=== PATIENT | female | born 1965 | race Two or more races ===

== ENCOUNTER 2022-07-18 03:40 | Emergency (ER) | payer MEDICAID, SELFPAY ==
--- NOTE | ~2022-07-18 | XR_ITS ---
EXAMINATION: ER CHEST CLINICAL INFORMATION: Right rib pain. COMPARISON: None TECHNIQUE: AP upright portable view of the chest was obtained. FINDINGS: The cardiomediastinal silhouette is within normal limits in size. Lungs bilaterally are symmetrically expanded. There is central vascular congestion with diffuse reticular prominence in the lungs, suggesting pulmonary edema. No focal consolidation, effusion or pneumothorax is seen. Bony structures are unremarkable. XR/XR chest 1V IMPRESSION: Findings are suggestive of mild pulmonary edema. Close clinical correlation and follow-up is recommended.
[2022-07-18 03:48] VITALS: BP 106/56; BP 107/48; PULSE 76; PULSE 84; RESP 17; TEMP 37.7; O2SAT 92; O2SAT 98; BMI 40.2
[2022-07-18 04:10] LABS: Mean Corpuscular Volume 98.5 fL (80.0-98.0); PLT CLUMP 1
[2022-07-18 04:12] LABS: Hematocrit 33.8 % (37.0-47.0); Hemoglobin 11.2 g/dl (12.0-16.0); Mean Corpuscular HGB Conc 33.1 g/dl (31.0-35.0); Mean Corpuscular Hemoglobin 32.7 pg (27.0-33.0); Mean Platelet Volume 11.5 fL (9.4-12.3); Red Blood Count 3.43 X10*6/uL (4.20-5.50)
[2022-07-18 04:13] LABS: White Blood Count 4.4 X10*3/uL (4.8-10.8)
[2022-07-18 04:29] LABS: Alanine Aminotransferase 101 U/L (0-31); Albumin Level 3.7 g/dL (3.5-5.0); Alkaline Phosphatase 87 U/L (39-117); Anion Gap 14 (12-20); Aspartate Amino Transferase 87 U/L (5-31); Bilirubin Total 0.4 mg/dL (0.0-1.0); Blood Urea Nitrogen 11 mg/dL (9-16); Calcium 7.9 mg/dL (8.4-10.2); Carbon Dioxide 24 mmol/L (22-29); Chloride 102 mmol/L (96-108); Creatinine Clr Calc Pharmacy 85.7; Estimated Glomerular Filt Rate > 60; Glucose Random 183 mg/dL (60-115); Sodium 137 mmol/L (135-145); Total Protein 6.5 g/dL (6.5-8.0)
[2022-07-18 04:35] LABS: Platelet Count 59 X10*3/uL (160-400)
[2022-07-18 04:47] LABS: Influenza A PCR POSITIVE (Negative); Influenza B PCR NEGATIVE (Negative); Resp Syncy Virus RNA Qual PCR NEGATIVE (Negative); SARS COV2 PCR INHOUSE NEGATIVE (Negative)
[2022-07-18 04:56] VITALS: BP 109/56; PULSE 82; RESP 19; TEMP 38.1; O2SAT 97
--- NOTE | 2022-07-18 06:27 | PC.NURSE ---
pt a&o, complaining of right rib pain while coughing, no n/v currently. pt is positive for FLU A. Will continue to monitor.
[2022-07-18 06:34] VITALS: BP 131/69; PULSE 81; RESP 19; TEMP 38.3; O2SAT 96
--- NOTE | 2022-07-18 06:41 | PC.NURSE ---
Notified provider Dr. Bal regarding pt temp. Will continue to monitor.
[2022-07-18] MEDS: Ibuprofen 400 MG TABLET PO (07:02)
[2022-07-18] MEDS: Acetaminophen 325 MG TABLET 975 MG PO (07:03)
--- NOTE | 2022-07-18 07:09 | ED.GENADULT ---
HPI - General Adult General Chief complaint: General Medical Stated complaint: Rt Flank Pain Time Seen by Provider: 07/18/22 06:40 Source: patient and family Mode of arrival: EMS History of Present Illness HPI narrative: 57-year-old female with history of COPD, diabetes, hypertension who presents via EMS for 3 days of worsening shortness of breath, cough, sore throat with body aches and subjective fevers with chills. She otherwise denies GI or symptoms. Related Data Previous Rx's Medication Instructions Recorded benzonatate 200 mg capsule 200 mg PO TID PRN cough #14 caps 07/18/22 Allergies Allergy/AdvReac Type Severity Reaction Status Date / Time No Known Allergies Allergy Verified 07/18/22 03:54 Review of Systems Review of Systems: Pertinent positives and negatives as stated in HPI [facility] Past Medical History Source: nursing notes reviewed Social History Social History Advance Directives: No Advance Directives Information Provided: No Physical Exam ED Vital Signs: Vital Signs - 24 hr 07/18/22 03:48 07/18/22 04:56 07/18/22 06:34 Temperature 100 F 100.6 F H 101 F H Pulse Rate 84 82 81 Respiratory Rate 17 19 19 Blood Pressure 107/48 L 109/56 L 131/69 Pulse Oximetry 92 97 96 Oxygen Delivery Method Nasal Cannula Nasal Cannula Nasal Cannula Oxygen Flow Rate 2 2 07/18/22 07:35 07/18/22 08:08 Temperature 99.3 F Pulse Rate 77 87 Respiratory Rate 16 17 Blood Pressure 110/44 L Pulse Oximetry 96 Oxygen Delivery Method Nasal Cannula Oxygen Flow Rate 2 BMI result Body Mass Index 40.2 VITAL SIGNS: Reviewed. GENERAL: Chronically ill, well nourished, in mild distress. HEAD: Normocephalic/atraumatic EYES: PERRLA, EOMI EARS: Ext canals without abnormality NOSE: Nares patent bilateral OROPHARYNX: no oral lesions noted, posterior pharynx clear NECK: Supple, no adenopathy LUNGS: Good inspiratory effort with coarse rhonchi, increased work of breathing with tachypnea, no expiratory wheeze noted, dry cough noted. SpO2<97> on baseline nasal cannula oxygen CARDIOVASCULAR: Regular rate and rhythm without noted murmurs ABDOMEN: Soft, non-tender, non-distended with bowel sounds. MUSCULOSKELETAL: No tenderness, deformities, or effusions noted on gross inspection. EXTREMITIES: No cyanosis, clubbing or edema. SKIN: Inspection of the skin reveals no rashes NEUROLOGIC: Alert and oriented x 4. Strength and sensation to light touch were grossly intact x 4. Medications Administered Discontinued Medications Generic Name Dose Route Start Last Admin Trade Name Freq PRN Reason Stop Dose Admin Acetaminophen 975 mg 07/18/22 06:40 07/18/22 07:03 Acetaminophen 325 Mg Tablet PO 07/18/22 06:41 975 mg ONCE ONE Administration Benzonatate 200 mg 07/18/22 07:08 07/18/22 08:05 Benzonatate 100 Mg Capsule PO 07/18/22 07:09 200 mg ONCE ONE Administration Albuterol Sulfate 5 mg/ 0 mg 07/18/22 07:05 07/18/22 07:34 Albuterol/Ipratropium 3 ml INHALE 07/18/22 07:06 0.5 each ONCE ONE Administration Ibuprofen 400 mg 07/18/22 06:40 07/18/22 07:02 Ibuprofen 400 Mg Tablet PO 07/18/22 06:41 400 mg ONCE ONE Administration Potassium Chloride 60 meq 07/18/22 07:25 07/18/22 08:06 Potassium Chloride Er 20 Meq Tab.Er.Prt PO 07/18/22 07:26 60 meq ONCE ONE Administration Medical Decision Making Medical Decision Making MDM Narrative: 57-year-old female who does not appear well but in no extremis. 0713: Of on review with hematology results patient is noted to have a macrocytic anemia and no history of acute bleeding so I feel that this is likely chronic in nature, however there is a noted low platelet count again no comparison available and no current history of petechial rash or bleeding and patient does have underlying viral illness as she is noted to be flu A positive which may be a contributing factor to the hematologic results on review which include a WBC-4.4. Patient is also febrile currently and has a low potassium level and will receive oral repletion for this. Patient is also going to get a 5 mg DuoNeb treatment and I have low clinical suspicion for acute COPD exacerbation as a feel that this is primarily attributable to influenza a. Patient continues to oxygenate well on her baseline nasal cannula. 0930: On re-evaluation patient reports that she is feeling improved, on review of her lab work I do not find any clinical evidence of fluid overload which was further corroborated by BNP-20, and patient continues to oxygenating well on baseline supplemental oxygen from home. She is not experience any increase in phlegm production and do not feel that she is currently experiencing a COPD exacerbation. The chest x-ray although mildly suggestive of congestion really feel that this is more consistent with underlying viral infection. Patient was strongly encouraged to follow-up with her primary care provider by calling the office today and she is currently outside the window for Tamiflu. She is otherwise stable for discharge to home. Differential Diagnosis Differential Diagnoses: The differential diagnosis associated with the presentation includes I will rule out Viral illness,COPD, pneumonia Lab Data MDM Lab Attestation statement: I reviewed the patient's lab results. Please see the discussion above Result Diagrams: 07/18/22 04:06 07/18/22 04:06 Labs: Lab Results 07/18/22 07/18/22 07/18/22 Range/Units 04:06 04:06 04:06 WBC 4.4 L (4.8-10.8) X10*3/uL RBC 3.43 L (4.20-5.50) X10*6/uL Hgb 11.2 L (12.0-16.0) g/dl Hct 33.8 L (37.0-47.0) % MCV 98.5 H (80.0-98.0) fL MCH 32.7 (27.0-33.0) pg MCHC 33.1 (31.0-35.0) g/dl RDW 16.0 (11.0-16.0) % Plt Count 59 L (160-400) X10*3/uL MPV 11.5 (9.4-12.3) fL Absolute Nucleated RBC 0.000 (0.0-0.012) X10*3/uL Nucleated RBC % (auto) 0.0 (0.0-0.2) /100WBC Sodium 137 (135-145) mmol/L Potassium 3.0 L (3.3-5.1) mmol/L Chloride 102 (96-108) mmol/L Carbon Dioxide 24 (22-29) mmol/L Anion Gap 14 (12-20) BUN 11 (9-16) mg/dL Creatinine 0.80 (0.5-1.4) mg/dL Estim Creat Clear Calc 85.7 Estimated GFR > 60 Random Glucose 183 H (60-115) mg/dL Lactic Acid (0.5-2.0) mmol/L Calcium 7.9 L (8.4-10.2) mg/dL Total Bilirubin 0.4 (0.0-1.0) mg/dL AST 87 H (5-31) U/L ALT 101 H (0-31) U/L Alkaline Phosphatase 87 (39-117) U/L B-Natriuretic Peptide (<100) pg/mL Total Protein 6.5 (6.5-8.0) g/dL Albumin 3.7 (3.5-5.0) g/dL Influenza Type A (PCR) POSITIVE A (Negative) Influenza Type B (PCR) NEGATIVE (Negative) RSV RNA Qual (PCR) NEGATIVE (Negative) SARS-CoV-2 RNA (RT-PCR) NEGATIVE (Negative) 07/18/22 07/18/22 Range/Units 04:06 07:53 WBC (4.8-10.8) X10*3/uL RBC (4.20-5.50) X10*6/uL Hgb (12.0-16.0) g/dl Hct (37.0-47.0) % MCV (80.0-98.0) fL MCH (27.0-33.0) pg MCHC (31.0-35.0) g/dl RDW (11.0-16.0) % Plt Count (160-400) X10*3/uL MPV (9.4-12.3) fL Absolute Nucleated RBC (0.0-0.012) X10*3/uL Nucleated RBC % (auto) (0.0-0.2) /100WBC Sodium (135-145) mmol/L Potassium (3.3-5.1) mmol/L Chloride (96-108) mmol/L Carbon Dioxide (22-29) mmol/L Anion Gap (12-20) BUN (9-16) mg/dL Creatinine (0.5-1.4) mg/dL Estim Creat Clear Calc Estimated GFR Random Glucose (60-115) mg/dL Lactic Acid 1.0 (0.5-2.0) mmol/L Calcium (8.4-10.2) mg/dL Total Bilirubin (0.0-1.0) mg/dL AST (5-31) U/L ALT (0-31) U/L Alkaline Phosphatase (39-117) U/L B-Natriuretic Peptide 20 (<100) pg/mL Total Protein (6.5-8.0) g/dL Albumin (3.5-5.0) g/dL Influenza Type A (PCR) (Negative) Influenza Type B (PCR) (Negative) RSV RNA Qual (PCR) (Negative) SARS-CoV-2 RNA (RT-PCR) (Negative) Independent Interpretation I performed an independent interpretation of an: EKG Interpretation: Normal sinus rhythm, HR-86, no STEMI, NV/QRS/QTC are within normal limits. Radiology Impression Radiologist Impression: My interpretation is not in agreement with radiology's impression chest x-ray. Discharge Plan Discharge Clinical Impression: Acute viral syndrome, Influenza A Patient Disposition: Home, Self-Care Instructions: Influenza (ED), Viral Syndrome (ED) Additional Instructions: 1. Reanudar todos los medicamentos caseros seg?n lo prescrito. 2. Le he dado jade receta para un medicamento para la tos. 3. Tylenol 1000 mg, por v?a oral, cada 6 horas seg?n sea necesario para controlar el dolor. No exceda los 4000 mg dentro de las 24 horas. Tenga cuidado ya que NyQuil/DayQuil contiene acetaminof?n/Tylenol y debe tener esto en cuenta para la dosis diaria m?xima. 4. Contin?e bebiendo paradise agua 5. Comun?quese con el consultorio de holman proveedor de atenci?n primaria hoy mismo para programar jade nora para jade reevaluaci?n y un manejo ambulatorio adicional. Regrese a la cortney de emergencias por cualquier empeoramiento de los s?ntomas. 1. Resume all home medications as prescribed. 2. I have provided you with a prescription for a cough medication. 3. Tylenol 1000 mg, orally, every 6 hours as needed for pain control. Do not exceed 4000 mg within 24 hours. Please use caution as NyQuil/DayQuil does have acetaminophen/Tylenol in it and you need to take this into account for the maximum daily dose. 4. Continue to drink plenty of water 5. Please contact your primary care provider office today to set up an appointment for re-evaluation and further outpatient management. Return to the ER for any worsening of symptoms. Prescriptions: New benzonatate 200 mg capsule 200 mg PO TID PRN (Reason: cough) Qty: 14 0RF Print Language: Malay
[2022-07-18] MEDS: Albuterol Sulfate 5 MG, Albuterol/Iprat 2.5/0.5MG 3 ML 3 ML INHALE (07:34)
[2022-07-18 07:35] VITALS: PULSE 77; RESP 16; O2SAT 94
--- NOTE | 2022-07-18 08:02 | ECG_ITS ---
Test Reason : SOB Blood Pressure : / mmHG Vent. Rate : 086 BPM Atrial Rate : 086 BPM P-R Int : 164 ms QRS Dur : 094 ms QT Int : 384 ms P-R-T Axes : 074 -04 033 degrees QTc Int : 459 ms Normal sinus rhythm Inferior infarct , age undetermined Abnormal ECG No previous ECGs available Referred By: Fidelia Trinh Electronically Signed By:ISADORA BLACKWOOD MD
[2022-07-18] MEDS: Benzonatate 100 MG CAPSULE 200 MG PO (08:05)
[2022-07-18] MEDS: Potassium Chloride ER 20 MEQ TAB.ER.PRT 60 MEQ PO (08:06)
[2022-07-18 08:08] VITALS: BP 110/44; PULSE 87; RESP 17; TEMP 37.4; O2SAT 96
[2022-07-18 09:16] LABS: B Type Natriuretic Peptide 20 pg/mL (<100)
== END 2022-07-18 10:03 | disposition home or self-care (01) ==
PROVIDERS: Emergency Provider Student in an Organized Health Care Education/Training Program
DX: B34.9 Viral infection, unspecified (principal); J11.1 Influenza due to unidentified influenza virus with other respiratory manifestations; Z20.822 Contact with and (suspected) exposure to COVID-19; R06.02 Shortness of breath; I10 Essential (primary) hypertension; E11.9 Type 2 diabetes mellitus without complications; J44.9 Chronic obstructive pulmonary disease, unspecified; Z87.891 Personal history of nicotine dependence
CPT/HCPCS: 0241U; 36415; 71045; 80053; 83605; 83880; 85027; 87040; 93005; 94640; 99284; 99285

== ENCOUNTER 2022-07-23 14:22 | Inpatient (IN) | payer MEDICAID, SELFPAY ==
[2022-07-23] VITALS (8 sets, daily range): BP systolic 98–124; BP diastolic 46–58; PULSE 67–94; RESP 15–20; TEMP 36.2–37.2; O2SAT 88–95; BMI 40.2
--- NOTE | ~2022-07-23 | XR_ITS ---
EXAMINATION: XR CHEST CLINICAL INFORMATION: SOB. COMPARISON: None TECHNIQUE: 2 views of the chest were obtained. FINDINGS: The lungs are well-expanded and clear of acute pneumonic process. The heart size and pulmonary vascularity is normal. No gross bony abnormality seen. XR/XR chest 2V IMPRESSION: Unremarkable chest exam.
--- NOTE | ~2022-07-23 | CT_ITS ---
EXAMINATION: CT CHEST WITHOUT CONTRAST CLINICAL INFORMATION: Hypoxemia COMPARISON: Chest radiograph earlier today TECHNIQUE: Multidetector volumetric CT imaging of the chest was done. Axial MIP volume rendering provided. Sagittal and coronal reformatted images were obtained. This CT examination was performed using dose optimization techniques as appropriate, variously including the following: *Automated exposure control *Adjustment of mA and/or kV according to patient size (this includes techniques or standardized protocols for targeted exams where dose is matched to indication/reason for exam; i.e. extremities or head) *Use of iterative reconstruction technique DLP: 426 mGy-cm FINDINGS: LUNGS: Multifocal groundglass prominently peripheral infiltrates are present predominantly in the upper lobes with some small areas in the right lower lobe and relative sparing of the left lower lobe. No solid lung masses are seen. MEDIASTINUM: Heart size normal. Some prominent lymph nodes are seen in the AP window and precarinal region measuring 1.0 and 1.2 cm. No gross mediastinal or hilar lymphadenopathy. CORONARY ARTERY CALCIFICATION: None visualized on this study. PLEURA: There is no pleural effusion. No pleural mass or thickening. AXILLA: No lymphadenopathy. UPPER ABDOMEN: Unremarkable. OSSEOUS STRUCTURES: Unremarkable. CT/CT chest wo IV con IMPRESSION: Multifocal groundglass infiltrates predominantly in the upper lobes with some small areas in the right lower lobe. Findings are consistent with Covid 19. Other processes such as influenza pneumonia or organizing pneumonia, as can be seen with drug toxicity and connective tissue disease, can cause a similar imaging pattern. Fleischner guidelines were followed.
--- NOTE | ~2022-07-23 | US_ITS ---
EXAMINATION: US ABDOMEN COMPLETE CLINICAL INFORMATION: Cirrhosis. COMPARISON: None TECHNIQUE: Real-time imaging of the abdominal viscera. FINDINGS: PANCREAS: The pancreas appears unremarkable, without masses or ductal dilatation, with the exception of the tail which is obscured by bowel gas. ABDOMINAL AORTA: The proximal, mid, and distal segments are normal in caliber. INFERIOR VENA CAVA: Visualized portions are normal. LIVER: The liver appears enlarged and demonstrates increased echogenicity consistent with hepatic steatosis. In retrospect, on the recent CT scan, the liver measures a few Hounsfield units less than the spleen also consistent with hepatic steatosis. The liver is normal in size. The liver contour is normal. Parenchymal echogenicity is normal. No focal hepatic lesion. There is no intrahepatic biliary duct dilatation seen. GALLBLADDER: The gallbladder is physiologically distended without evidence of stones, sludge or pericholecystic fluid. Common tail artifact are present near the fundus suggesting adenomyomatosis. COMMON BILE DUCT: Normal in caliber measuring 0.3 cm in diameter. RIGHT KIDNEY: Normal. No hydronephrosis. No renal calculi or focal parenchymal lesions. The kidney measures 10.7 cm in maximum dimension. LEFT KIDNEY: An upper pole benign simple Bosniak class I cyst present measuring 2.8 cm. No hydronephrosis. No renal calculi or focal parenchymal lesions. The kidney measures 11.4 cm in maximum dimension. SPLEEN: Normal. The spleen measures 8.8 cm in maximum dimension. FREE FLUID: None. US/US abdomen complete IMPRESSION: 1. Enlarged fatty liver. 2. Gallbladder adenomyomatosis. 3. Benign Bosniak class I left renal cyst needs no further follow-up.
--- NOTE | 2022-07-23 14:25 | ED_ITS ---
HPI - General Adult General Chief complaint: Dyspnea <JOSE Ahuja - Last Filed: 07/23/22 14:29> Stated complaint: diff breathing <JOSE Ahuja - Last Filed: 07/23/22 14:29> Time Seen by Provider: 07/23/22 14:48 <JOSE Ahuja - Last Filed: 07/23/22 14:29> Source: patient and family <Anna Danielson NP - Last Filed: 07/23/22 18:55> Mode of arrival: ambulatory <Anna Danielson NP - Last Filed: 07/23/22 18:55> Limitations: language barrier <Anna Danielson NP - Last Filed: 07/23/22 18:55> History of Present Illness HPI narrative: 57-year-old female with past medical history of COPD, diabetes, hypertension, and recently diagnosed with flu a on 07/18/2022 presents emergency department with complaints of shortness of breath and a hoarse voice x 2 days. She states she has been using her inhalers at home with moderate results in symptom reduction. She denies any chest pain, nausea, vomiting, diarrhea, constipation, headache, or vision changes at this time. <Anna Danielson NP - Last Filed: 07/23/22 18:55> Onset (ago): day(s) <Anna Danielson NP - Last Filed: 07/23/22 18:55> Related Data Home medications: Previous Rx's Medication Instructions Recorded benzonatate 200 mg capsule 200 mg PO TID PRN cough #14 caps 07/18/22 amoxicillin 875 mg-potassium 1 tab PO BID 5 days #10 tabs 07/23/22 clavulanate 125 mg tablet prednisone 20 mg tablet 60 mg PO DAILY 5 days #15 tabs 07/23/22 <JOSE Ahuja - Last Filed: 07/23/22 14:29> Allergies/adverse reactions: Allergies Allergy/AdvReac Type Severity Reaction Status Date / Time No Known Allergies Allergy Verified 07/18/22 03:54 <JOSE Ahuja - Last Filed: 07/23/22 14:29> Review of Systems Review of Systems: Yes all other systems are reviewed and are negative <Anna Danielson NP - Last Filed: 07/23/22 18:55> [facility] Past Medical History Attestation statement: The following information was validated with the patient. <Anna Danielson NP - Last Filed: 07/23/22 18:55> Source: old records reviewed and obtained from family <Anna Danielson NP - Last Filed: 07/23/22 18:55> Social History Social History: Social History Advance Directives: No Advance Directives Information Provided: Yes <JOSE Ahuja - Last Filed: 07/23/22 14:29> Physical Exam ED Vital Signs: Vital Signs - 24 hr 07/23/22 14:27 07/23/22 14:59 07/23/22 16:29 Temperature 97.1 F 98.9 F Pulse Rate 79 67 73 Respiratory Rate 18 18 19 Blood Pressure 103/51 L 98/58 L Pulse Oximetry 88 L 90 L Oxygen Delivery Method Room Air Room Air 07/23/22 16:56 07/23/22 18:42 Temperature Pulse Rate 77 Respiratory Rate 15 Blood Pressure Pulse Oximetry 88 L 93 Oxygen Delivery Method Room Air Room Air BMI result Body Mass Index 40.2 <JOSE Ahuja - Last Filed: 07/23/22 14:29> Vital Signs - 24 hr 07/23/22 14:27 07/23/22 14:59 07/23/22 16:29 Temperature 97.1 F 98.9 F Pulse Rate 79 67 73 Respiratory Rate 18 18 19 Blood Pressure 103/51 L 98/58 L Pulse Oximetry 88 L 90 L Oxygen Delivery Method Room Air Room Air 07/23/22 16:56 07/23/22 18:42 Temperature Pulse Rate 77 Respiratory Rate 15 Blood Pressure Pulse Oximetry 88 L 93 Oxygen Delivery Method Room Air Room Air BMI result Body Mass Index 40.2 <Anna Danielson NP - Last Filed: 07/23/22 18:55> Nursing notes and vital signs reviewed. GENERAL APPEARANCE: A&0 x 4, generally well appearing, no acute distress HENMT: Normal to inspection, atraumatic, face symmetrical. Normal external ears, nose, and oropharynx clear. EYE: PERRLA, EOM intact, structures appear normal NECK: Supple without lymphadenopathy. No stiffness or restricted ROM. CHEST: Normal to inspection HEART: Normal rate and regular rhythm, normal S1/S2 LUNGS: LS diminished. Able to speak in complete sentences. No crackles, wheezes, or rhonchi auscultated ABDOMEN: Soft, nontender, nondistended. Normal bowel sounds noted BACK: No CVAT, no obvious deformity. Normal cervical and thoracolumbar ROM EXTREMITIES: Moving all extremities without difficulty. No cyanosis, clubbing, or edema. Normal capillary refill. NEUROLOGICAL: Alert and oriented, moving all 4 extremities with equal strength. CN not formally tested but appearing grossly intact. Observed to ambulate with normal gait. Cognition normal SKIN: Warm and dry without any lesions, rash, or visible sores PSYCH: Cooperative, normal affect, normal thought process <Anna Danielson NP - Last Filed: 07/23/22 18:55> Course Course Course Narrative: RME performed by Glenna Johnson PA-C. Patient is a 57 year old female presenting to the emergency department with increased shortness of breath. Patient has been having difficulty breathing for 5 days and it seems to be getting worse. Labs + imaging ordered. Patient 88% room air - charge nurse rubi fuentes. <JOSE Ahuja Last Filed: 07/23/22 14:29> RME performed by Glenna Johnson PA-C. Patient is a 57 year old female presenting to the emergency department with increased shortness of breath. Patient has been having difficulty breathing for 5 days and it seems to be getting worse. Labs + imaging ordered. Patient 88% room air - charge nurse alerted. 1500: Patient x-ray. 1540: Methylprednisone, IV Mag, and albuterol given 1630: Patient ambulating in the hallway without issue. 1700: K 2.7, 40 mEq PO and 10 mEq KCL IV x 2 ordered for K replacement. SpO2 ranging from 88-90% on room air. Urinalysis positive for infection. 1850: Sign out given to MAURI Jeronimo <Anna Danielson NP - Last Filed: 07/23/22 18:55> Medications Administered Discontinued Medications Generic Name Dose Route Start Last Admin Trade Name Freq PRN Reason Stop Dose Admin Albuterol Sulfate 5 mg/ 7.5 mg 07/23/22 14:27 07/23/22 14:57 Albuterol Sulfate 2.5 mg INHALE 07/23/22 14:28 7.5 mg ONCE ONE Administration Magnesium Sulfate 2 gm in 50 mls @ 25 mls/hr 07/23/22 14:27 07/23/22 18:26 Magnesium Sulfate/H2o IV 07/23/22 16:26 Infused ONCE ONE Infusion Potassium Chloride 10 meq in 100 mls @ 100 mls/hr 07/23/22 17:00 07/23/22 17:40 Potassium Chloride/H20 IV 07/23/22 17:59 100 mls/hr ONCE ONE Administration Potassium Chloride 10 meq in 100 mls @ 100 mls/hr 07/23/22 17:02 07/23/22 18:44 Potassium Chloride/H20 IV 07/23/22 18:01 100 mls/hr ONCE ONE Administration Methylprednisolone Sodium Succinate 60 mg 07/23/22 14:27 07/23/22 15:40 Methylprednisolone Sod Succ 125 Mg/2 Ml Vial IVPUSH 07/23/22 14:28 60 mg ONCE ONE Administration Potassium Chloride 40 meq 07/23/22 17:00 07/23/22 17:38 Potassium Chloride Er 20 Meq Tab.Er.Prt PO 07/23/22 17:01 40 meq ONCE ONE Administration <JOSE Ahuja - Last Filed: 07/23/22 14:29> Medications Administered Discontinued Medications Generic Name Dose Route Start Last Admin Trade Name Freq PRN Reason Stop Dose Admin Albuterol Sulfate 5 mg/ 7.5 mg 07/23/22 14:27 07/23/22 14:57 Albuterol Sulfate 2.5 mg INHALE 07/23/22 14:28 7.5 mg ONCE ONE Administration Magnesium Sulfate 2 gm in 50 mls @ 25 mls/hr 07/23/22 14:27 07/23/22 18:26 Magnesium Sulfate/H2o IV 07/23/22 16:26 Infused ONCE ONE Infusion Potassium Chloride 10 meq in 100 mls @ 100 mls/hr 07/23/22 17:00 07/23/22 17:40 Potassium Chloride/H20 IV 07/23/22 17:59 100 mls/hr ONCE ONE Administration Potassium Chloride 10 meq in 100 mls @ 100 mls/hr 07/23/22 17:02 07/23/22 18:44 Potassium Chloride/H20 IV 07/23/22 18:01 100 mls/hr ONCE ONE Administration Methylprednisolone Sodium Succinate 60 mg 07/23/22 14:27 07/23/22 15:40 Methylprednisolone Sod Succ 125 Mg/2 Ml Vial IVPUSH 07/23/22 14:28 60 mg ONCE ONE Administration Potassium Chloride 40 meq 07/23/22 17:00 07/23/22 17:38 Potassium Chloride Er 20 Meq Tab.Er.Prt PO 07/23/22 17:01 40 meq ONCE ONE Administration <Anna Danielson NP - Last Filed: 07/23/22 18:55> Medical Decision Making Medical Decision Making [facility] Narrative: 57-year-old female with past medical history of COPD, diabetes, hypertension, and recently diagnosed with flu a on 07/18/2022 presents emergency department with complaints of shortness of breath and a hoarse voice x 2 days. Solu-Medrol, IV Mag, and albuterol nebulizer treatment given with reduction in symptoms. Chest x-ray unremarkable showing lungs well expanded and clear of acute pneumonic process. Hematology improved from last lab draw done 07/18/2022, however; H/H is still below normal limits. Chemistry significant for potassium level 2.7. 40 mEq given p.o. and total of 20 mEq given IV. Will redraw K after 2nd potassium infused. VBG unremarkable. Unremarkable chest x- ray. <Anna Danielson NP - Last Filed: 07/23/22 18:55> Lab Data [facility] Lab Attestation statement: I reviewed the patient's lab results. <Anna Danielson NP - Last Filed: 07/23/22 18:55> Result Diagrams: 07/23/22 15:19 07/23/22 15:19 <JOSE Ahuja - Last Filed: 07/23/22 14:29> Labs: Lab Results 07/23/22 07/23/22 07/23/22 Range/Units 15:19 15:19 15:19 WBC 6.0 (4.8-10.8) X10*3/uL RBC 3.50 L (4.20-5.50) X10*6/uL Hgb 11.6 L (12.0-16.0) g/dl Hct 34.0 L (37.0-47.0) % MCV 97.1 (80.0-98.0) fL MCH 33.1 H (27.0-33.0) pg MCHC 34.1 (31.0-35.0) g/dl RDW 15.4 (11.0-16.0) % Plt Count 76 L D (160-400) X10*3/uL MPV 11.5 (9.4-12.3) fL Immature Gran % (Auto) Cancelled Neut % (Auto) Cancelled Lymph % (Auto) Cancelled [place] % (Auto) Cancelled Eos % (Auto) Cancelled Baso % (Auto) Cancelled Lymph # (Auto) Cancelled [place] # (Auto) Cancelled Eos # (Auto) Cancelled Baso # (Auto) Cancelled Abs Immat Gran (auto) Cancelled Absolute Neuts (auto) Cancelled Absolute Nucleated RBC 0.000 (0.0-0.012) X10*3/uL Nucleated RBC % (auto) 0.0 (0.0-0.2) /100WBC Neutrophils % (Manual) 40 L (45-73) % Band Neutrophils % 0 L (3-5) % Lymphocytes % (Manual) 45 H (20-40) % Atypical Lymphs % (Man) 8 H (0-6) % Monocytes % (Manual) 2 (2-11) % Eosinophils % (Manual) 5 H (0-4) % Abs Neuts (Manual) 2.4 (2.0-8.3) X10*3/uL Lymphocytes # (Manual) 2.7 (1.2-4.9) X10*3/uL Atyp Lymphs # (Manual) 0.5 x10*3/uL Monocytes # (Manual) 0.1 (0.1-1.2) X10*3/uL Eosinophils # (Manual) 0.3 (0.0-0.4) X10*3/uL Platelet Estimate DECREASED (NORMAL) Large Platelets PRESENT Plt Morphology Comment NOTED RBC Morphology NORMAL VBG pH (7.32-7.43) VBG pCO2 mmHg VBG pO2 mmHg VBG HCO3 (22-26) mmol/L VBG O2 Saturation % VBG Base Excess mmol/L Sodium 138 (135-145) mmol/L Potassium 2.7 L (3.3-5.1) mmol/L Chloride 103 (96-108) mmol/L Carbon Dioxide 25 (22-29) mmol/L Anion Gap 13 (12-20) BUN 11 (9-16) mg/dL Creatinine 0.71 (0.5-1.4) mg/dL Estim Creat Clear Calc 96.6 Estimated GFR > 60 Random Glucose 140 H (60-115) mg/dL Calcium 8.3 L (8.4-10.2) mg/dL Magnesium 2.1 (1.6-2.6) mg/dL Total Bilirubin 0.6 (0.0-1.0) mg/dL AST 48 H (5-31) U/L ALT 63 H (0-31) U/L Alkaline Phosphatase 109 (39-117) U/L Troponin I High Sens < 3.5 (<3.5-17.0) ng/L Total Protein 6.8 (6.5-8.0) g/dL Albumin 3.8 (3.5-5.0) g/dL Urine Color Urine Appearance Urine pH (5.0-9.0) Ur Specific [place] (1.005-1.025) Urine Protein (Neg-Trace) mg/dL Urine Glucose (UA) (Negative) mg/dL Urine Ketones (Negative) mg/dL Urine Blood (Negative) Urine Nitrite (Negative) Ur Leukocyte Esterase (Negative) Urine RBC (0-2) /HPF Urine WBC (0-5) /HPF Ur Squamous Epith Cells (0-2) /HPF Urine Bacteria (None Seen) Hyaline Casts (0-2) /LPF Influenza Type A (PCR) (Negative) Influenza Type B (PCR) (Negative) RSV RNA Qual (PCR) (Negative) SARS-CoV-2 RNA (RT-PCR) (Negative) 07/23/22 07/23/22 07/23/22 Range/Units 15:19 15:24 16:43 WBC (4.8-10.8) X10*3/uL RBC (4.20-5.50) X10*6/uL Hgb (12.0-16.0) g/dl Hct (37.0-47.0) % MCV (80.0-98.0) fL MCH (27.0-33.0) pg MCHC (31.0-35.0) g/dl RDW (11.0-16.0) % Plt Count (160-400) X10*3/uL MPV (9.4-12.3) fL Immature Gran % (Auto) Neut % (Auto) Lymph % (Auto) [place] % (Auto) Eos % (Auto) Baso % (Auto) Lymph # (Auto) [place] # (Auto) Eos # (Auto) Baso # (Auto) Abs Immat Gran (auto) Absolute Neuts (auto) Absolute Nucleated RBC (0.0-0.012) X10*3/uL Nucleated RBC % (auto) (0.0-0.2) /100WBC Neutrophils % (Manual) (45-73) % Band Neutrophils % (3-5) % Lymphocytes % (Manual) (20-40) % Atypical Lymphs % (Man) (0-6) % Monocytes % (Manual) (2-11) % Eosinophils % (Manual) (0-4) % Abs Neuts (Manual) (2.0-8.3) X10*3/uL Lymphocytes # (Manual) (1.2-4.9) X10*3/uL Atyp Lymphs # (Manual) x10*3/uL Monocytes # (Manual) (0.1-1.2) X10*3/uL Eosinophils # (Manual) (0.0-0.4) X10*3/uL Platelet Estimate (NORMAL) Large Platelets Plt Morphology Comment RBC Morphology VBG pH 7.46 H (7.32-7.43) VBG pCO2 40 mmHg VBG pO2 111 mmHg VBG HCO3 28 H (22-26) mmol/L VBG O2 Saturation 98.0 % VBG Base Excess 4.8 mmol/L Sodium (135-145) mmol/L Potassium (3.3-5.1) mmol/L Chloride (96-108) mmol/L Carbon Dioxide (22-29) mmol/L Anion Gap (12-20) BUN (9-16) mg/dL Creatinine (0.5-1.4) mg/dL Estim Creat Clear Calc Estimated GFR Random Glucose (60-115) mg/dL Calcium (8.4-10.2) mg/dL Magnesium (1.6-2.6) mg/dL Total Bilirubin (0.0-1.0) mg/dL AST (5-31) U/L ALT (0-31) U/L Alkaline Phosphatase (39-117) U/L Troponin I High Sens (<3.5-17.0) ng/L Total Protein (6.5-8.0) g/dL Albumin (3.5-5.0) g/dL Urine Color Dark Yellow Urine Appearance Cloudy Urine pH 6.0 (5.0-9.0) Ur Specific [place] >= 1.030 H (1.005-1.025) Urine Protein 100 (2+) H (Neg-Trace) mg/dL Urine Glucose (UA) Negative (Negative) mg/dL Urine Ketones Trace (Negative) mg/dL Urine Blood Large (3+) H (Negative) Urine Nitrite Negative (Negative) Ur Leukocyte Esterase Moderate (2+) H (Negative) Urine RBC >20 H (0-2) /HPF Urine WBC >50 H (0-5) /HPF Ur Squamous Epith Cells 3-5 (0-2) /HPF Urine Bacteria None Seen (None Seen) Hyaline Casts 0-2 (0-2) /LPF Influenza Type A (PCR) NEGATIVE (Negative) Influenza Type B (PCR) NEGATIVE (Negative) RSV RNA Qual (PCR) NEGATIVE (Negative) SARS-CoV-2 RNA (RT-PCR) NEGATIVE (Negative) <JOSE Ahuja - Last Filed: 07/23/22 14:29> Lab Results 07/23/22 07/23/22 07/23/22 Range/Units 15:19 15:19 15:19 WBC 6.0 (4.8-10.8) X10*3/uL RBC 3.50 L (4.20-5.50) X10*6/uL Hgb 11.6 L (12.0-16.0) g/dl Hct 34.0 L (37.0-47.0) % MCV 97.1 (80.0-98.0) fL MCH 33.1 H (27.0-33.0) pg MCHC 34.1 (31.0-35.0) g/dl RDW 15.4 (11.0-16.0) % Plt Count 76 L D (160-400) X10*3/uL MPV 11.5 (9.4-12.3) fL Immature Gran % (Auto) Cancelled Neut % (Auto) Cancelled Lymph % (Auto) Cancelled [place] % (Auto) Cancelled Eos % (Auto) Cancelled Baso % (Auto) Cancelled Lymph # (Auto) Cancelled [place] # (Auto) Cancelled Eos # (Auto) Cancelled Baso # (Auto) Cancelled Abs Immat Gran (auto) Cancelled Absolute Neuts (auto) Cancelled Absolute Nucleated RBC 0.000 (0.0-0.012) X10*3/uL Nucleated RBC % (auto) 0.0 (0.0-0.2) /100WBC Neutrophils % (Manual) 40 L (45-73) % Band Neutrophils % 0 L (3-5) % Lymphocytes % (Manual) 45 H (20-40) % Atypical Lymphs % (Man) 8 H (0-6) % Monocytes % (Manual) 2 (2-11) % Eosinophils % (Manual) 5 H (0-4) % Abs Neuts (Manual) 2.4 (2.0-8.3) X10*3/uL Lymphocytes # (Manual) 2.7 (1.2-4.9) X10*3/uL Atyp Lymphs # (Manual) 0.5 x10*3/uL Monocytes # (Manual) 0.1 (0.1-1.2) X10*3/uL Eosinophils # (Manual) 0.3 (0.0-0.4) X10*3/uL Platelet Estimate DECREASED (NORMAL) Large Platelets PRESENT Plt Morphology Comment NOTED RBC Morphology NORMAL VBG pH (7.32-7.43) VBG pCO2 mmHg VBG pO2 mmHg VBG HCO3 (22-26) mmol/L VBG O2 Saturation % VBG Base Excess mmol/L Sodium 138 (135-145) mmol/L Potassium 2.7 L (3.3-5.1) mmol/L Chloride 103 (96-108) mmol/L Carbon Dioxide 25 (22-29) mmol/L Anion Gap 13 (12-20) BUN 11 (9-16) mg/dL Creatinine 0.71 (0.5-1.4) mg/dL Estim Creat Clear Calc 96.6 Estimated GFR > 60 Random Glucose 140 H (60-115) mg/dL Calcium 8.3 L (8.4-10.2) mg/dL Magnesium 2.1 (1.6-2.6) mg/dL Total Bilirubin 0.6 (0.0-1.0) mg/dL AST 48 H (5-31) U/L ALT 63 H (0-31) U/L Alkaline Phosphatase 109 (39-117) U/L Troponin I High Sens < 3.5 (<3.5-17.0) ng/L Total Protein 6.8 (6.5-8.0) g/dL Albumin 3.8 (3.5-5.0) g/dL Urine Color Urine Appearance Urine pH (5.0-9.0) Ur Specific [place] (1.005-1.025) Urine Protein (Neg-Trace) mg/dL Urine Glucose (UA) (Negative) mg/dL Urine Ketones (Negative) mg/dL Urine Blood (Negative) Urine Nitrite (Negative) Ur Leukocyte Esterase (Negative) Urine RBC (0-2) /HPF Urine WBC (0-5) /HPF Ur Squamous Epith Cells (0-2) /HPF Urine Bacteria (None Seen) Hyaline Casts (0-2) /LPF Influenza Type A (PCR) (Negative) Influenza Type B (PCR) (Negative) RSV RNA Qual (PCR) (Negative) SARS-CoV-2 RNA (RT-PCR) (Negative) 07/23/22 07/23/22 07/23/22 Range/Units 15:19 15:24 16:43 WBC (4.8-10.8) X10*3/uL RBC (4.20-5.50) X10*6/uL Hgb (12.0-16.0) g/dl Hct (37.0-47.0) % MCV (80.0-98.0) fL MCH (27.0-33.0) pg MCHC (31.0-35.0) g/dl RDW (11.0-16.0) % Plt Count (160-400) X10*3/uL MPV (9.4-12.3) fL Immature Gran % (Auto) Neut % (Auto) Lymph % (Auto) [place] % (Auto) Eos % (Auto) Baso % (Auto) Lymph # (Auto) [place] # (Auto) Eos # (Auto) Baso # (Auto) Abs Immat Gran (auto) Absolute Neuts (auto) Absolute Nucleated RBC (0.0-0.012) X10*3/uL Nucleated RBC % (auto) (0.0-0.2) /100WBC Neutrophils % (Manual) (45-73) % Band Neutrophils % (3-5) % Lymphocytes % (Manual) (20-40) % Atypical Lymphs % (Man) (0-6) % Monocytes % (Manual) (2-11) % Eosinophils % (Manual) (0-4) % Abs Neuts (Manual) (2.0-8.3) X10*3/uL Lymphocytes # (Manual) (1.2-4.9) X10*3/uL Atyp Lymphs # (Manual) x10*3/uL Monocytes # (Manual) (0.1-1.2) X10*3/uL Eosinophils # (Manual) (0.0-0.4) X10*3/uL Platelet Estimate (NORMAL) Large Platelets Plt Morphology Comment RBC Morphology VBG pH 7.46 H (7.32-7.43) VBG pCO2 40 mmHg VBG pO2 111 mmHg VBG HCO3 28 H (22-26) mmol/L VBG O2 Saturation 98.0 % VBG Base Excess 4.8 mmol/L Sodium (135-145) mmol/L Potassium (3.3-5.1) mmol/L Chloride (96-108) mmol/L Carbon Dioxide (22-29) mmol/L Anion Gap (12-20) BUN (9-16) mg/dL Creatinine (0.5-1.4) mg/dL Estim Creat Clear Calc Estimated GFR Random Glucose (60-115) mg/dL Calcium (8.4-10.2) mg/dL Magnesium (1.6-2.6) mg/dL Total Bilirubin (0.0-1.0) mg/dL AST (5-31) U/L ALT (0-31) U/L Alkaline Phosphatase (39-117) U/L Troponin I High Sens (<3.5-17.0) ng/L Total Protein (6.5-8.0) g/dL Albumin (3.5-5.0) g/dL Urine Color Dark Yellow Urine Appearance Cloudy Urine pH 6.0 (5.0-9.0) Ur Specific [place] >= 1.030 H (1.005-1.025) Urine Protein 100 (2+) H (Neg-Trace) mg/dL Urine Glucose (UA) Negative (Negative) mg/dL Urine Ketones Trace (Negative) mg/dL Urine Blood Large (3+) H (Negative) Urine Nitrite Negative (Negative) Ur Leukocyte Esterase Moderate (2+) H (Negative) Urine RBC >20 H (0-2) /HPF Urine WBC >50 H (0-5) /HPF Ur Squamous Epith Cells 3-5 (0-2) /HPF Urine Bacteria None Seen (None Seen) Hyaline Casts 0-2 (0-2) /LPF Influenza Type A (PCR) NEGATIVE (Negative) Influenza Type B (PCR) NEGATIVE (Negative) RSV RNA Qual (PCR) NEGATIVE (Negative) SARS-CoV-2 RNA (RT-PCR) NEGATIVE (Negative) <Anna Danielson NP - Last Filed: 07/23/22 18:55> Radiology Impression Discussion of test interpretation with radiology: I have reviewed the radiologist's reading. <Anna Danielson NP - Last Filed: 07/23/22 18:55> Radiologist Impression: I have independently reviewed the chest x-ray showing no cardiopulmonary processes. EXAMINATION: XR CHEST CLINICAL INFORMATION: SOB. COMPARISON: None TECHNIQUE: 2 views of the chest were obtained. FINDINGS: The lungs are well-expanded and clear of acute pneumonic process. The heart size and pulmonary vascularity is normal. No gross bony abnormality seen. XR/XR chest 2V IMPRESSION: Unremarkable chest exam. Dictated By: Rene Harmon MD Signed By: <Electronically signed by Rene Harmon MD in OV> 07/23/22 1520 DD/ 1452 TD/TT:? [facility] [employer] Supervisor: [facility] [place] <Anna Danielson NP - Last Filed: 07/23/22 18:55> Discharge Plan Discharge Clinical Impression: Acute exacerbation of chronic obstructive airways disease <JOSE Ahuja - Last Filed: 07/23/22 14:29> Patient Disposition: Home, Self-Care <JOSE Ahuja - Last Filed: 07/23/22 14:29> Instructions: How to Use a Metered-Dose Inhaler (ED), COPD (Chronic Obstructive Pulmonary Disease) (ED), How to Use a Nebulizer (ED), How Your Lungs Work (ED) <JOSE Ahuja - Last Filed: 07/23/22 14:29> Prescriptions: New prednisone 20 mg tablet 60 mg PO DAILY 5 Days Qty: 15 0RF amoxicillin-pot clavulanate 875-125 mg tablet 1 tab PO BID 5 Days Qty: 10 0RF No Action benzonatate 200 mg capsule 200 mg PO TID PRN (Reason: cough) Qty: 14 0RF <JOSE Ahuja - Last Filed: 07/23/22 14:29> Referrals: [facility] Family Medicine [Provider Group] [facility] Care[facility] Lou [Provider Group] [facility] [Provider Group] <JOSE Ahuja - Last Filed: 07/23/22 14:29> Print Language: Icelandic <JOSE Ahuja - Last Filed: 07/23/22 14:29>
--- NOTE | 2022-07-23 14:27 | ECG_ITS ---
Test Reason : DIFFICULTY BREATHING Blood Pressure : / mmHG Vent. Rate : 067 BPM Atrial Rate : 067 BPM P-R Int : 172 ms QRS Dur : 096 ms QT Int : 432 ms P-R-T Axes : 072 000 031 degrees QTc Int : 456 ms Normal sinus rhythm Low voltage QRS Cannot rule out Inferior infarct , age undetermined Cannot rule out Anterior infarct , age undetermined Abnormal ECG No significant changes when compared with the previous EKG of 18 jul 2022 Referred By: Glenna Johnson Electronically Signed By:ELIAS PERES
[2022-07-23] MEDS: Albuterol Sulfate 5 MG, Albuterol Sulfate (0.083%) 2.5 MG 7.5 MG INHALE (14:57)
[2022-07-23 15:27] LABS: PLT CLUMP 1; Red Cell Distribution Width 15.4 % (11.0-16.0)
[2022-07-23 15:28] LABS: Hemoglobin 11.6 g/dl (12.0-16.0); Mean Corpuscular HGB Conc 34.1 g/dl (31.0-35.0); Mean Corpuscular Hemoglobin 33.1 pg (27.0-33.0); Mean Corpuscular Volume 97.1 fL (80.0-98.0); Mean Platelet Volume 11.5 fL (9.4-12.3)
[2022-07-23 15:30] LABS: VBG Base Excess 4.8 mmol/L; VBG HCO3 28 mmol/L (22-26); VBG pCO2 40 mmHg; VBG pH 7.46 (7.32-7.43); VBG pO2 111 mmHg
[2022-07-23 15:36] LABS: Venous Blood Gas Refer to POC result
[2022-07-23] MEDS: Magnesium Sulfate/H2O 2 GM/50 ML PIGGYBACK IV (15:40)
[2022-07-23] MEDS: methylPREDNISolone Sod Succ 125 MG/2 ML VIAL 60 MG IVPUSH (15:40)
[2022-07-23 15:48] LABS: Alanine Aminotransferase 63 U/L (0-31); Albumin Level 3.8 g/dL (3.5-5.0); Alkaline Phosphatase 109 U/L (39-117); Anion Gap 13 (12-20); Aspartate Amino Transferase 48 U/L (5-31); Bilirubin Total 0.6 mg/dL (0.0-1.0); Blood Urea Nitrogen 11 mg/dL (9-16); Calcium 8.3 mg/dL (8.4-10.2); Carbon Dioxide 25 mmol/L (22-29); Chloride 103 mmol/L (96-108); Creatinine Clr Calc Pharmacy 96.6; Estimated Glomerular Filt Rate > 60; Glucose Random 140 mg/dL (60-115); Magnesium 2.1 mg/dL (1.6-2.6); Potassium 2.7 mmol/L (3.3-5.1); Sodium 138 mmol/L (135-145); Total Protein 6.8 g/dL (6.5-8.0)
[2022-07-23 15:52] LABS: Platelet Count 76 X10*3/uL (160-400)
[2022-07-23 15:57] LABS: Atypical Lymph Absolute Manual 0.5 x10*3/uL; Atypical Lymphs Percent Manual 8 % (0-6); Band Neutrophils Percent 0 % (3-5); Eosinophils Absolute Manual 0.3 X10*3/uL (0.0-0.4); Eosinophils Percent Manual 5 % (0-4); Large Platelet PRESENT; Lymphocytes Absolute Manual 2.7 X10*3/uL (1.2-4.9); Lymphocytes Percent Manual 45 % (20-40); Monocytes Absolute Manual 0.1 X10*3/uL (0.1-1.2); Monocytes Percent Manual 2 % (2-11); Neutrophils Absolute Manual 2.4 X10*3/uL (2.0-8.3); Neutrophils Percent Manual 40 % (45-73); Platelet Estimate DECREASED (NORMAL); Platelet Morphology Comment NOTED; RBC Morphology NORMAL
[2022-07-23 15:58] LABS: Troponin-I High Sensitivity < 3.5 ng/L (<3.5-17.0)
[2022-07-23 16:02] LABS: Influenza A PCR NEGATIVE (Negative); Influenza B PCR NEGATIVE (Negative); Resp Syncy Virus RNA Qual PCR NEGATIVE (Negative); SARS COV2 PCR INHOUSE NEGATIVE (Negative)
[2022-07-23 16:51] LABS: Appearance Urine Cloudy; Color Urine Dark Yellow; Glucose Urine UA Negative (Negative); Leukocyte Esterase Urine Moderate (2+) (Negative); Nitrite Urine Negative (Negative); Specific Gravity - Urine >= 1.030 (1.005-1.025); UMIC TRIGGER UACC YES; Urine Blood Large (3+) (Negative); Urine Ketones Trace mg/dL (Negative); Urine Protein 100 (2+) mg/dL (Neg-Trace)
[2022-07-23 16:54] LABS: Bacteria Urine None Seen (None Seen); Hyaline Casts Urine 0-2 /LPF (0-2); RBC Urine >20 /HPF (0-2); UACC Culture Trigger YES; WBC Urine >50 /HPF (0-5)
[2022-07-23] MEDS: Potassium Chloride ER 20 MEQ TAB.ER.PRT 40 MEQ PO (17:38)
[2022-07-23] MEDS: Potassium Chloride/H20 10 MEQ/100 ML PIGGYBACK 100 MEQ IV ×2 (17:40→18:44)
[2022-07-23 21:04] LABS: Anion Gap 13 (12-20); Blood Urea Nitrogen 10 mg/dL (9-16); Calcium 8.2 mg/dL (8.4-10.2); Carbon Dioxide 26 mmol/L (22-29); Chloride 101 mmol/L (96-108); Creatinine Clr Calc Pharmacy 96.6; Estimated Glomerular Filt Rate > 60; Glucose Random 192 mg/dL (60-115); Potassium 3.4 mmol/L (3.3-5.1); Sodium 137 mmol/L (135-145)
[2022-07-23] MEDS: Potassium Chloride Packet 20 MEQ PACKET 40 MEQ PO (21:05)
--- NOTE | 2022-07-23 21:12 | PC.NURSE ---
PT A&Ox4, denies any pain. States cough is whats causing her chest discomfort. VSS, meds given as documented. Tolerating PO fluids. Visitor at bedside.
[2022-07-23] MEDS: Albuterol Sulfate 7.5 MG, Albuterol Sulfate (0.083%) 2.5 MG 10 MG INHALE (22:29)
[2022-07-23 22:50] LABS: Venous Blood Gas Refer to POC result
[2022-07-23 22:51] LABS: VBG Base Excess -0.7 mmol/L; VBG HCO3 21 mmol/L (22-26); VBG pCO2 29 mmHg; VBG pH 7.47 (7.32-7.43); VBG pO2 73 mmHg
[2022-07-23] MEDS: cefTRIAXone sodium 1 GM in 0.9 % Sodium Chloride 50 ML IV (22:52)
--- NOTE | 2022-07-23 23:21 | MHC.EDTECH ---
PT WENT FOR A SHORT WALK AROUND THE DEPARTMENT ,PT OXYGEN DROPPED TO 88 % ,PROVIDER KIMBERLY IS AWARE .
[2022-07-24] VITALS (10 sets, daily range): BP systolic 104–131; BP diastolic 57–61; PULSE 86–110; RESP 16–25; TEMP 36.4–37.2; O2SAT 92–96
--- NOTE | 2022-07-24 00:17 | PM.IMHP ---
History of Present Illness Date of Service: 07/24/22 Chief Complaint: Dyspnea this is a 57-year-old female with pertinent history of COPD not on home oxygen, mood disorder, essential hypertension who presents to the emergency department for evaluation of dyspnea. Patient was recently diagnosed with flu on 07/18. Patient states she has been having worsening dyspnea since then. It is better at rest and work with ambulation. Also has been having fevers and chills. Does endorse associated productive cough. Patient tried to use her home inhaler without any relief. Does have wheezing. Denies chest discomfort, palpitations, abdominal pain, changes in urinary or bowel habits. In the emergency department, patient was noted to be hypoxemic with ambulation Review of Systems Constitutional: Constitutional: Reports chills, Reports fever(s), Reports lethargy and Reports malaise Cardiovascular: Cardiovascular: Reports no additional cardiovascular complaints and Reports dyspnea on exertion Respiratory: Respiratory: Reports cough, Reports pain with cough, Reports dyspnea on exertion and Reports wheezing Gastrointestinal: Gastrointestinal: Reports no additional gastrointestinal complaints Genitourinary: Genitourinary: Reports no additional female genitourinary complaints Allergic/Immunologic: Allergic/Immunologic: Reports wheezing [facility] Medical History (Updated 07/24/22 @ 00:29 by Kamilla Gregory MD) COPD (chronic obstructive pulmonary disease) Hypertension Mood disorder Functional capacity: independent ambulation Pertinent family history: No known family history of CAD Social History Alcohol intake: never Smoked in Last 30 Days: Yes Use of substances other than those prescribed or required for medical reasons: No Advance Directives: No Advance Directives Information Provided: Yes Meds Allergies Allergy/AdvReac Type Severity Reaction Status Date / Time No Known Allergies Allergy Verified 07/18/22 03:54 Active Medications: Current Medications Acetaminophen (Acetaminophen 325 Mg Tablet) 650 mg PO Q6H PRN PRN Reason: Pain, Mild (Pain Scale 1-3) Albuterol Sulfate 2.5 mg/ (Ipratropium [place] 0.5 mg) 0 mg INHALE RQ4H WHILE AWAKE JOSEIFNA Albuterol Sulfate 2.5 mg/ (Ipratropium [place] 0.5 mg) 0 mg INHALE RQ6H WHILE AWAKE PRN PRN Reason: Wheezing Enoxaparin Sodium (Enoxaparin Sodium 40 Mg/0.4 Ml Syringe) 40 mg SUBCUT Q24H [facility] Azithromycin 500 mg/ Sodium (Chloride) 250 mls @ 125 mls/hr IV Q24H [facility] Ceftriaxone Sodium 1 gm/ (Sodium Chloride) 50 mls @ 100 mls/hr IV Q24H [facility] Melatonin (Melatonin 3 Mg Tablet) 6 mg PO BEDTIME PRN PRN Reason: Insomnia Methylprednisolone Sodium Succinate (Methylprednisolone Sod Succ 40 Mg/Ml Vial) 40 mg IVPUSH Q12H [facility] Ondansetron HCl (Ondansetron Hcl 4 Mg/2 Ml Vial) 4 mg IVPUSH Q8H PRN PRN Reason: Nausea and Vomiting Sodium Chloride (0.9 % Sodium Chloride Flush 3 Ml Syringe) 3 ml IVFLUSH QSHIFT [facility] Home Medications Medication Instructions Recorded Confirmed Last Taken Type albuterol sulfate 90 mcg/actuation inhalation 07/23/22 Unknown History aerosol inhaler aspirin 81 mg tablet,delayed 1 tab PO DAILY 07/23/22 07/23/22 Unknown History release (Adult Aspirin Regimen) atorvastatin 40 mg tablet 1 tab PO DAILY 07/23/22 07/23/22 Unknown History [id number] tab PO 07/23/22 Unknown History 50 mg-325 mg-40 mg tablet fluticasone propionate 50 intranasal 07/23/22 Unknown History mcg/actuation nasal spray,suspension hydrochlorothiazide 25 mg tablet 1 tab PO DAILY 07/23/22 07/23/22 Unknown History ipratropium 0.5 mg-albuterol 3 mg ml inhalation 07/23/22 Unknown History (2.5 mg base)/3 mL nebulization soln lisinopril 5 mg tablet 1 tab PO DAILY 07/23/22 07/23/22 Unknown History metoprolol tartrate 100 mg tablet 1 tab PO BID 07/23/22 07/23/22 Unknown History tiotropium bromide 1.25 2 puff inhalation DAILY 07/23/22 07/23/22 Unknown History mcg/actuation mist for inhalation (Spiriva Respimat) trazodone 50 mg tablet 1 tab PO BEDTIME 07/23/22 07/23/22 Unknown History venlafaxine 150 mg 1 cap PO DAILY 07/23/22 07/23/22 Unknown History capsule,extended release 24 hr venlafaxine 37.5 mg 1 cap PO DAILY 07/23/22 07/23/22 Unknown History capsule,extended release 24 hr Physical Exam Vital Signs and Narrative: Vital Signs: Last Vital Signs Temp 98.8 F 07/23/22 22:00 Pulse 94 07/23/22 22:27 Resp 20 07/23/22 22:27 BP 123/55 L 07/23/22 22:00 Pulse Ox 93 07/23/22 22:00 O2 Del Method 07/23/22 22:00 BMI result Body Mass Index 40.2 Middle-aged female lying in bed in mild distress Neck supple, no JVD Regular rate and rhythm, S1-S2 heard Right-sided crackles with bilateral wheezing Abdomen soft nontender, no guarding, no rigidity Patient is awake, alert and oriented to self, place, time and person ; no focal motor deficit Psych: Normal mood No pedal edema Results Labs 07/23/22 15:19 07/23/22 20:18 Labs: Laboratory Results - last 24 hr 07/23/22 07/23/22 07/23/22 15:19 15:19 15:19 MCV 97.1 MCH 33.1 H MCHC 34.1 RDW 15.4 Plt Count 76 L D MPV 11.5 Immature Gran % (Auto) Cancelled Neut % (Auto) Cancelled Lymph % (Auto) Cancelled [place] % (Auto) Cancelled Eos % (Auto) Cancelled Baso % (Auto) Cancelled Lymph # (Auto) Cancelled [place] # (Auto) Cancelled Eos # (Auto) Cancelled Baso # (Auto) Cancelled Abs Immat Gran (auto) Cancelled Absolute Neuts (auto) Cancelled Absolute Nucleated RBC 0.000 Nucleated RBC % (auto) 0.0 Neutrophils % (Manual) 40 L Band Neutrophils % 0 L Lymphocytes % (Manual) 45 H Atypical Lymphs % (Man) 8 H Monocytes % (Manual) 2 Eosinophils % (Manual) 5 H Abs Neuts (Manual) 2.4 Lymphocytes # (Manual) 2.7 Atyp Lymphs # (Manual) 0.5 Monocytes # (Manual) 0.1 Eosinophils # (Manual) 0.3 Platelet Estimate DECREASED Large Platelets PRESENT Plt Morphology Comment NOTED RBC Morphology NORMAL VBG pH VBG pCO2 VBG pO2 VBG HCO3 VBG O2 Saturation VBG Base Excess Anion Gap 13 Estim Creat Clear Calc 96.6 Estimated GFR > 60 Random Glucose 140 H Calcium 8.3 L Magnesium 2.1 Total Bilirubin 0.6 AST 48 H ALT 63 H Alkaline Phosphatase 109 Troponin I High Sens < 3.5 Total Protein 6.8 Albumin 3.8 Urine Color Urine Appearance Urine pH Ur Specific [place] Urine Protein Urine Glucose (UA) Urine Ketones Urine Blood Urine Nitrite Ur Leukocyte Esterase Urine RBC Urine WBC Ur Squamous Epith Cells Urine Bacteria Hyaline Casts Influenza Type A (PCR) Influenza Type B (PCR) RSV RNA Qual (PCR) SARS-CoV-2 RNA (RT-PCR) 07/23/22 07/23/22 07/23/22 15:19 15:24 16:43 MCV MCH MCHC RDW Plt Count MPV Immature Gran % (Auto) Neut % (Auto) Lymph % (Auto) [place] % (Auto) Eos % (Auto) Baso % (Auto) Lymph # (Auto) [place] # (Auto) Eos # (Auto) Baso # (Auto) Abs Immat Gran (auto) Absolute Neuts (auto) Absolute Nucleated RBC Nucleated RBC % (auto) Neutrophils % (Manual) Band Neutrophils % Lymphocytes % (Manual) Atypical Lymphs % (Man) Monocytes % (Manual) Eosinophils % (Manual) Abs Neuts (Manual) Lymphocytes # (Manual) Atyp Lymphs # (Manual) Monocytes # (Manual) Eosinophils # (Manual) Platelet Estimate Large Platelets Plt Morphology Comment RBC Morphology VBG pH 7.46 H VBG pCO2 40 VBG pO2 111 VBG HCO3 28 H VBG O2 Saturation 98.0 VBG Base Excess 4.8 Anion Gap Estim Creat Clear Calc Estimated GFR Random Glucose Calcium Magnesium Total Bilirubin AST ALT Alkaline Phosphatase Troponin I High Sens Total Protein Albumin Urine Color Dark Yellow Urine Appearance Cloudy Urine pH 6.0 Ur Specific [place] >= 1.030 H Urine Protein 100 (2+) H Urine Glucose (UA) Negative Urine Ketones Trace Urine Blood Large (3+) H Urine Nitrite Negative Ur Leukocyte Esterase Moderate (2+) H Urine RBC >20 H Urine WBC >50 H Ur Squamous Epith Cells 3-5 Urine Bacteria None Seen Hyaline Casts 0-2 Influenza Type A (PCR) NEGATIVE Influenza Type B (PCR) NEGATIVE RSV RNA Qual (PCR) NEGATIVE SARS-CoV-2 RNA (RT-PCR) NEGATIVE 07/23/22 07/23/22 20:18 22:45 MCV MCH MCHC RDW Plt Count MPV Immature Gran % (Auto) Neut % (Auto) Lymph % (Auto) [place] % (Auto) Eos % (Auto) Baso % (Auto) Lymph # (Auto) [place] # (Auto) Eos # (Auto) Baso # (Auto) Abs Immat Gran (auto) Absolute Neuts (auto) Absolute Nucleated RBC Nucleated RBC % (auto) Neutrophils % (Manual) Band Neutrophils % Lymphocytes % (Manual) Atypical Lymphs % (Man) Monocytes % (Manual) Eosinophils % (Manual) Abs Neuts (Manual) Lymphocytes # (Manual) Atyp Lymphs # (Manual) Monocytes # (Manual) Eosinophils # (Manual) Platelet Estimate Large Platelets Plt Morphology Comment RBC Morphology VBG pH 7.47 H VBG pCO2 29 VBG pO2 73 VBG HCO3 21 L VBG O2 Saturation 95.0 VBG Base Excess -0.7 Anion Gap 13 Estim Creat Clear Calc 96.6 Estimated GFR > 60 Random Glucose 192 H Calcium 8.2 L Magnesium Total Bilirubin AST ALT Alkaline Phosphatase Troponin I High Sens Total Protein Albumin Urine Color Urine Appearance Urine pH Ur Specific [place] Urine Protein Urine Glucose (UA) Urine Ketones Urine Blood Urine Nitrite Ur Leukocyte Esterase Urine RBC Urine WBC Ur Squamous Epith Cells Urine Bacteria Hyaline Casts Influenza Type A (PCR) Influenza Type B (PCR) RSV RNA Qual (PCR) SARS-CoV-2 RNA (RT-PCR) Imaging Radiologist's Impressions: Impressions Chest X-Ray 07/23/22 14:52 IMPRESSION: Unremarkable chest exam. Chest CT 07/23/22 22:29 IMPRESSION: Multifocal groundglass infiltrates predominantly in the upper lobes with some small areas in the right lower lobe. Findings are consistent with Covid 19. Other processes such as influenza pneumonia or organizing pneumonia, as can be seen with drug toxicity and connective tissue disease, can cause a similar imaging pattern. Fleischner guidelines were followed. Assessment and Plan (1) Mood disorder: Status: Acute (2) COPD (chronic obstructive pulmonary disease): Status: Acute (3) Hypertension: Status: Acute (4) Hypoxia: Status: Acute Plan this is a 57-year-old female with pertinent history of COPD not on home oxygen, mood disorder, essential hypertension who presents to the emergency department for evaluation of dyspnea. #. acute hypoxemic respiratory failure secondary to: COPD exacerbation + CAP: Ambulatory hypoxemia present. Monitor oxygen saturation and maintain greater than 88% #. community-acquired pneumonia leading to: #. Acute exacerbation of COPD - will admit patient and initiate IV empiric antibiotics for community-acquired pneumonia. Continue systemic steroids. Initiate scheduled and p.r.n. DuoNebs #. essential hypertension: Continue p.o. home antihypertensives #. mood disorder: Continue home medications #. hyperglycemia: Likely due to steroid use. Initiating Accu-Cheks with sliding scale insulin. Obtain A1c med rec pending DVT prophylaxis: Lovenox 40 mg daily Full Code Cardiac diet Admit as inpatient and will require two night minimum hospital stay for IV antibiotics Time Spent With Patient Time: Total time managing care of this patient today ____ minutes. Quality Stroke Does the patient have a stroke diagnosis?: No VTE Prior VTE?: No VTE Risk Level:: Medical - moderate - high VTE Device Contraindication: Treatment Not Indicated VTE Drug Contraindication: N/A - Med Ordered
[2022-07-24 00:22] LABS: Glucose, Whole Blood 204 mg/dL (60-115)
[2022-07-24] MEDS: Benzonatate 100 MG CAPSULE 200 MG PO ×2 (00:41→12:15)
[2022-07-24] MEDS: methylPREDNISolone Sod Succ 40 MG/ML VIAL IVPUSH ×2 (00:41→12:08)
[2022-07-24] MEDS: Enoxaparin Sodium 40 MG/0.4 ML SYRINGE SUBCUT (00:42)
[2022-07-24] MEDS: Azithromycin 500 MG in 0.9 % Sodium Chloride 250 ML 125 MG IV (00:43)
[2022-07-24] MEDS: Acetaminophen 325 MG TABLET 650 MG PO ×2 (04:15→12:15)
--- NOTE | 2022-07-24 04:16 | PC.NURSE ---
PT resting quietly, no apparent distress. Reports 6/10 headache, meds given as documented.
--- NOTE | 2022-07-24 04:45 | PC.NURSE ---
PT o2 sat 86% on RA while sleeping, O2 sat 96% after placed on 2L NC.
[2022-07-24 06:07] LABS: MANUAL DIFF FLAG NO
--- NOTE | 2022-07-24 06:07 | PC.NURSE ---
Nurse to nurse report given. PT aware of plan. Will be transported by remanufacturing technician to room 357.
[2022-07-24 06:12] LABS: Eosinophils Percent Auto 0.4 % (0-4); Hematocrit 32.3 % (37.0-47.0); Hemoglobin 10.7 g/dl (12.0-16.0); Imm Gran Abs Auto 0.04 X10*3/uL (0.00-0.03); Imm Gran Pct Auto 0.8 % (0.0-0.4); Lymphocytes Absolute Auto 1.7 X10*3/uL (1.2-4.9); Lymphocytes Percent Auto 33.6 % (20-40); Mean Corpuscular HGB Conc 33.1 g/dl (31.0-35.0); Mean Corpuscular Hemoglobin 32.6 pg (27.0-33.0); Mean Corpuscular Volume 98.5 fL (80.0-98.0); Monocytes Absolute Auto 0.6 X10*3/uL (0.1-1.2); Neutrophils Absolute Auto 2.7 x10*3/uL (2.0-8.3); Neutrophils Percent Auto 54.2 % (45-73); Red Blood Count 3.28 X10*6/uL (4.20-5.50); Red Cell Distribution Width 15.7 % (11.0-16.0)
[2022-07-24 06:14] LABS: Platelet Count 77 X10*3/uL (160-400)
[2022-07-24 06:31] LABS: Anion Gap 15 (12-20); Blood Urea Nitrogen 12 mg/dL (9-16); Calcium 8.2 mg/dL (8.4-10.2); Carbon Dioxide 23 mmol/L (22-29); Chloride 108 mmol/L (96-108); Estimated Glomerular Filt Rate > 60; Glucose Random 212 mg/dL (60-115); Potassium 3.9 mmol/L (3.3-5.1); Sodium 142 mmol/L (135-145)
[2022-07-24 07:06] LABS: Estimated Average Glucose 143 mg/dL; Hemoglobin A1c % 6.6 %
--- NOTE | 2022-07-24 07:37 | PHA.MEDREC ---
Pharmacy Consult ? Medication Reconciliation Pharmacy has completed the medication reconciliation. Double checked med rec done overnight
[2022-07-24 08:02] LABS: Glucose, Whole Blood 220 mg/dL (60-115)
[2022-07-24] MEDS: Insulin Lispro 100 UNIT/ML 3 ML VIAL SUBCUT ×4 (08:29→21:05)
[2022-07-24] MEDS: 0.9 % Sodium Chloride Flush 3 ML SYRINGE IVFLUSH ×2 (09:30→16:40)
--- NOTE | 2022-07-24 10:06 | HO.PM.IMPN ---
Subjective Subjective Date of Service: 07/24/22 Review of Systems Follow up CAP and COPD still with dry cough eating breakfast Physical Exam Vital Signs: Vital Signs: Last Vital Signs Temp 97.9 F 07/24/22 08:00 Pulse 110 H 07/24/22 09:02 Resp 18 07/24/22 09:02 BP 122/61 07/24/22 08:00 Pulse Ox 95 07/24/22 08:00 O2 Del Method 07/24/22 08:00 O2 Flow Rate 2 07/24/22 08:00 BMI result Body Mass Index 40.2 Appearing in no acute distress lung sounds rhonchi heart regular rate rhythm, clear S1, S2 positive bowel sounds, abdomen is soft, nontender neuro patient is alert x3, no focal deficits Objective Data Active Medications Acetaminophen (Acetaminophen 325 Mg Tablet) 650 mg PO Q6H PRN PRN Reason: Pain, Mild (Pain Scale 1-3) Last Admin: 07/24/22 04:15 Dose: 650 mg Documented By: FRACISCO Benzonatate (Benzonatate 100 Mg Capsule) 200 mg PO TID PRN PRN Reason: cough Last Admin: 07/24/22 00:41 Dose: 200 mg Documented By: FRACISCO Albuterol Sulfate 2.5 mg/ (Ipratropium [place] 0.5 mg) 0 mg INHALE RQ4H WHILE AWAKE [facility] Last Admin: 07/24/22 08:58 Dose: 1 each Documented By: YUKI Albuterol Sulfate 2.5 mg/ (Ipratropium [place] 0.5 mg) 0 mg INHALE RQ6H WHILE AWAKE PRN PRN Reason: Wheezing Dextrose (Dextrose 50 % 25 Gm/50 Ml Syringe) 25 gm IVPUSH Q15M PRN; Protocol PRN Reason: per Hypoglycemia Standing Ord. Enoxaparin Sodium (Enoxaparin Sodium 40 Mg/0.4 Ml Syringe) 40 mg SUBCUT Q24H [facility] Last Admin: 07/24/22 00:42 Dose: 40 mg Documented By: FRACISCO Glucose (Glucose Gel 15 Gm Gel..Gram.) 15 gm PO Q15M PRN; Protocol PRN Reason: per Hypoglycemia Standing Ord. Azithromycin 500 mg/ Sodium (Chloride) 250 mls @ 125 mls/hr IV Q24H [facility] Last Infusion: 07/24/22 02:45 Dose: 0 mls/hr Documented By: FRACISCO Ceftriaxone Sodium 1 gm/ (Sodium Chloride) 50 mls @ 100 mls/hr IV Q24H [facility] Insulin Human Lispro (Insulin Lispro 100 Unit/Ml 3 Ml Vial) 0.1 - 10 unit SUBCUT QIDACHS [facility]; Protocol Last Admin: 07/24/22 08:29 Dose: 4 unit Documented By: ANNETTE Melatonin (Melatonin 3 Mg Tablet) 6 mg PO BEDTIME PRN PRN Reason: Insomnia Methylprednisolone Sodium Succinate (Methylprednisolone Sod Succ 40 Mg/Ml Vial) 40 mg IVPUSH Q12H [facility] Last Admin: 07/24/22 00:41 Dose: 40 mg Documented By: FRACISCO Ondansetron HCl (Ondansetron Hcl 4 Mg/2 Ml Vial) 4 mg IVPUSH Q8H PRN PRN Reason: Nausea and Vomiting Pharmacy Consult (Consult Rx Perform Med Rec) 1 each MISCELLANE ONCE PRN PRN Reason: Consult order Sodium Chloride (0.9 % Sodium Chloride Flush 3 Ml Syringe) 3 ml IVFLUSH QSHIFT [facility] Last Admin: 07/24/22 09:30 Dose: 3 ml Documented By: ANNETTE Labs 07/24/22 05:31 07/24/22 05:31 Labs: Laboratory Results - last 24 hr 07/23/22 07/23/22 07/23/22 15:19 15:19 15:19 MCV 97.1 MCH 33.1 H MCHC 34.1 RDW 15.4 Plt Count 76 L D MPV 11.5 Immature Gran % (Auto) Cancelled Neut % (Auto) Cancelled Lymph % (Auto) Cancelled [place] % (Auto) Cancelled Eos % (Auto) Cancelled Baso % (Auto) Cancelled Lymph # (Auto) Cancelled [place] # (Auto) Cancelled Eos # (Auto) Cancelled Baso # (Auto) Cancelled Abs Immat Gran (auto) Cancelled Absolute Neuts (auto) Cancelled Absolute Nucleated RBC 0.000 Nucleated RBC % (auto) 0.0 Neutrophils % (Manual) 40 L Band Neutrophils % 0 L Lymphocytes % (Manual) 45 H Atypical Lymphs % (Man) 8 H Monocytes % (Manual) 2 Eosinophils % (Manual) 5 H Abs Neuts (Manual) 2.4 Lymphocytes # (Manual) 2.7 Atyp Lymphs # (Manual) 0.5 Monocytes # (Manual) 0.1 Eosinophils # (Manual) 0.3 Platelet Estimate DECREASED Large Platelets PRESENT Plt Morphology Comment NOTED RBC Morphology NORMAL VBG pH VBG pCO2 VBG pO2 VBG HCO3 VBG O2 Saturation VBG Base Excess Anion Gap 13 Estim Creat Clear Calc 96.6 Estimated GFR > 60 POC Glucose Random Glucose 140 H Estimat Average Glucose Hemoglobin A1c % Calcium 8.3 L Magnesium 2.1 Total Bilirubin 0.6 AST 48 H ALT 63 H Alkaline Phosphatase 109 Troponin I High Sens < 3.5 Total Protein 6.8 Albumin 3.8 Urine Color Urine Appearance Urine pH Ur Specific [place] Urine Protein Urine Glucose (UA) Urine Ketones Urine Blood Urine Nitrite Ur Leukocyte Esterase Urine RBC Urine WBC Ur Squamous Epith Cells Urine Bacteria Hyaline Casts Influenza Type A (PCR) Influenza Type B (PCR) RSV RNA Qual (PCR) SARS-CoV-2 RNA (RT-PCR) 07/23/22 07/23/22 07/23/22 15:19 15:24 16:43 MCV MCH MCHC RDW Plt Count MPV Immature Gran % (Auto) Neut % (Auto) Lymph % (Auto) [place] % (Auto) Eos % (Auto) Baso % (Auto) Lymph # (Auto) [place] # (Auto) Eos # (Auto) Baso # (Auto) Abs Immat Gran (auto) Absolute Neuts (auto) Absolute Nucleated RBC Nucleated RBC % (auto) Neutrophils % (Manual) Band Neutrophils % Lymphocytes % (Manual) Atypical Lymphs % (Man) Monocytes % (Manual) Eosinophils % (Manual) Abs Neuts (Manual) Lymphocytes # (Manual) Atyp Lymphs # (Manual) Monocytes # (Manual) Eosinophils # (Manual) Platelet Estimate Large Platelets Plt Morphology Comment RBC Morphology VBG pH 7.46 H VBG pCO2 40 VBG pO2 111 VBG HCO3 28 H VBG O2 Saturation 98.0 VBG Base Excess 4.8 Anion Gap Estim Creat Clear Calc Estimated GFR POC Glucose Random Glucose Estimat Average Glucose Hemoglobin A1c % Calcium Magnesium Total Bilirubin AST ALT Alkaline Phosphatase Troponin I High Sens Total Protein Albumin Urine Color Dark Yellow Urine Appearance Cloudy Urine pH 6.0 Ur Specific [place] >= 1.030 H Urine Protein 100 (2+) H Urine Glucose (UA) Negative Urine Ketones Trace Urine Blood Large (3+) H Urine Nitrite Negative Ur Leukocyte Esterase Moderate (2+) H Urine RBC >20 H Urine WBC >50 H Ur Squamous Epith Cells 3-5 Urine Bacteria None Seen Hyaline Casts 0-2 Influenza Type A (PCR) NEGATIVE Influenza Type B (PCR) NEGATIVE RSV RNA Qual (PCR) NEGATIVE SARS-CoV-2 RNA (RT-PCR) NEGATIVE 07/23/22 07/23/22 07/23/22 20:18 22:45 23:07 MCV MCH MCHC RDW Plt Count MPV Immature Gran % (Auto) Neut % (Auto) Lymph % (Auto) [place] % (Auto) Eos % (Auto) Baso % (Auto) Lymph # (Auto) [place] # (Auto) Eos # (Auto) Baso # (Auto) Abs Immat Gran (auto) Absolute Neuts (auto) Absolute Nucleated RBC Nucleated RBC % (auto) Neutrophils % (Manual) Band Neutrophils % Lymphocytes % (Manual) Atypical Lymphs % (Man) Monocytes % (Manual) Eosinophils % (Manual) Abs Neuts (Manual) Lymphocytes # (Manual) Atyp Lymphs # (Manual) Monocytes # (Manual) Eosinophils # (Manual) Platelet Estimate Large Platelets Plt Morphology Comment RBC Morphology VBG pH 7.47 H VBG pCO2 29 VBG pO2 73 VBG HCO3 21 L VBG O2 Saturation 95.0 VBG Base Excess -0.7 Anion Gap 13 Estim Creat Clear Calc 96.6 Estimated GFR > 60 POC Glucose 204 H Random Glucose 192 H Estimat Average Glucose Hemoglobin A1c % Calcium 8.2 L Magnesium Total Bilirubin AST ALT Alkaline Phosphatase Troponin I High Sens Total Protein Albumin Urine Color Urine Appearance Urine pH Ur Specific [place] Urine Protein Urine Glucose (UA) Urine Ketones Urine Blood Urine Nitrite Ur Leukocyte Esterase Urine RBC Urine WBC Ur Squamous Epith Cells Urine Bacteria Hyaline Casts Influenza Type A (PCR) Influenza Type B (PCR) RSV RNA Qual (PCR) SARS-CoV-2 RNA (RT-PCR) 07/24/22 07/24/22 07/24/22 05:31 05:31 05:31 MCV 98.5 H MCH 32.6 MCHC 33.1 RDW 15.7 Plt Count 77 L MPV 12.0 Immature Gran % (Auto) 0.8 H Neut % (Auto) 54.2 Lymph % (Auto) 33.6 [place] % (Auto) 11.0 Eos % (Auto) 0.4 Baso % (Auto) 0.0 Lymph # (Auto) 1.7 [place] # (Auto) 0.6 Eos # (Auto) 0.0 Baso # (Auto) 0.0 Abs Immat Gran (auto) 0.04 H Absolute Neuts (auto) 2.7 Absolute Nucleated RBC 0.000 Nucleated RBC % (auto) 0.0 Neutrophils % (Manual) Band Neutrophils % Lymphocytes % (Manual) Atypical Lymphs % (Man) Monocytes % (Manual) Eosinophils % (Manual) Abs Neuts (Manual) Lymphocytes # (Manual) Atyp Lymphs # (Manual) Monocytes # (Manual) Eosinophils # (Manual) Platelet Estimate Large Platelets Plt Morphology Comment RBC Morphology VBG pH VBG pCO2 VBG pO2 VBG HCO3 VBG O2 Saturation VBG Base Excess Anion Gap 15 Estim Creat Clear Calc 89.0 Estimated GFR > 60 POC Glucose Random Glucose 212 H Estimat Average Glucose 143 Hemoglobin A1c % 6.6 Calcium 8.2 L Magnesium Total Bilirubin AST ALT Alkaline Phosphatase Troponin I High Sens Total Protein Albumin Urine Color Urine Appearance Urine pH Ur Specific [place] Urine Protein Urine Glucose (UA) Urine Ketones Urine Blood Urine Nitrite Ur Leukocyte Esterase Urine RBC Urine WBC Ur Squamous Epith Cells Urine Bacteria Hyaline Casts Influenza Type A (PCR) Influenza Type B (PCR) RSV RNA Qual (PCR) SARS-CoV-2 RNA (RT-PCR) 07/24/22 07:58 MCV MCH MCHC RDW Plt Count MPV Immature Gran % (Auto) Neut % (Auto) Lymph % (Auto) [place] % (Auto) Eos % (Auto) Baso % (Auto) Lymph # (Auto) [place] # (Auto) Eos # (Auto) Baso # (Auto) Abs Immat Gran (auto) Absolute Neuts (auto) Absolute Nucleated RBC Nucleated RBC % (auto) Neutrophils % (Manual) Band Neutrophils % Lymphocytes % (Manual) Atypical Lymphs % (Man) Monocytes % (Manual) Eosinophils % (Manual) Abs Neuts (Manual) Lymphocytes # (Manual) Atyp Lymphs # (Manual) Monocytes # (Manual) Eosinophils # (Manual) Platelet Estimate Large Platelets Plt Morphology Comment RBC Morphology VBG pH VBG pCO2 VBG pO2 VBG HCO3 VBG O2 Saturation VBG Base Excess Anion Gap Estim Creat Clear Calc Estimated GFR POC Glucose 220 H Random Glucose Estimat Average Glucose Hemoglobin A1c % Calcium Magnesium Total Bilirubin AST ALT Alkaline Phosphatase Troponin I High Sens Total Protein Albumin Urine Color Urine Appearance Urine pH Ur Specific [place] Urine Protein Urine Glucose (UA) Urine Ketones Urine Blood Urine Nitrite Ur Leukocyte Esterase Urine RBC Urine WBC Ur Squamous Epith Cells Urine Bacteria Hyaline Casts Influenza Type A (PCR) Influenza Type B (PCR) RSV RNA Qual (PCR) SARS-CoV-2 RNA (RT-PCR) Assessment and Plan (1) Hypoxia: Status: Acute Plan 57-year-old female with pertinent history of COPD not on home oxygen, mood disorder, essential hypertension who presents to the emergency department for evaluation of dyspnea. Acute hypoxemic respiratory failure secondary to COPD exacerbation + CAP Ambulatory hypoxemia present.? Monitor oxygen saturation and maintain greater than 88% continue Rocephin and azithromycin mucinex for dry cough supplemental oxygen solumedrol, scheduled duonebs ? Essential hypertension Continue p.o. home antihypertensives Mood disorder Continue home medications Hyperglycemia A1C 6.6, ss, ada diet while inpatient DVT prophylaxis: Lovenox 40 mg daily Full Code Attending Dr. Frias ?continued hospital stay for?IV antibiotics Time Spent With Patient Time: Total time managing care of this patient today ____ minutes. Quality Stroke Does the patient have a stroke diagnosis?: No VTE Prior VTE?: No VTE Risk Level:: Medical - moderate - high VTE Device Contraindication: Treatment Not Indicated VTE Drug Contraindication: N/A - Med Ordered
[2022-07-24 11:56] LABS: Glucose, Whole Blood 159 mg/dL (60-115)
[2022-07-24] MEDS: guaiFENesin LA 600 MG TAB.ER.12H PO ×2 (12:08→21:05)
--- NOTE | 2022-07-24 13:04 | MHC.CM.PN ---
CM MET WITH PT AND HER S/O AT BEDSIDE PT LIVES WITH HIM IN [facility] THEY REPORT THEY ARE HERE VISITING PT HAS A PCP BACK HOME - UNSURE OF NAME SHE IS INDEPENDENT WITH CARE, NO DME AND NO SERVICES NO HCP, IS AWARE SHE CAN COMPLETE ONE AT HER PCPS OFFICE IN HER HOME STATE PT HAS HAD ONE DOSE OF COVID [facility] HOWEVER HAD A BAD REACTION AND WAS UNABLE TO GET ANY MORE DCP HOME NO SERVICES VIA PRIVATE TRANSPORT
[2022-07-24 16:32] LABS: Glucose, Whole Blood 176 mg/dL (60-115)
[2022-07-24 20:28] LABS: Glucose, Whole Blood 266 mg/dL (60-115)
[2022-07-24] MEDS: Metoprolol Tartrate 100 MG TABLET PO (21:05)
[2022-07-24] MEDS: cefTRIAXone sodium 1 GM in 0.9 % Sodium Chloride 50 ML IV (21:05)
[2022-07-24] MEDS: traZODone HCL 50 MG TABLET PO (21:05)
[2022-07-25] VITALS (8 sets, daily range): BP systolic 110–123; BP diastolic 55–69; PULSE 71–101; RESP 16–18; TEMP 36.2–36.9; O2SAT 92–96
[2022-07-25] MEDS: methylPREDNISolone Sod Succ 40 MG/ML VIAL IVPUSH ×2 (00:46→11:54)
[2022-07-25] MEDS: Enoxaparin Sodium 40 MG/0.4 ML SYRINGE SUBCUT (00:46)
[2022-07-25] MEDS: Azithromycin 500 MG in 0.9 % Sodium Chloride 250 ML 125 MG IV (00:47)
[2022-07-25 07:54] LABS: Glucose, Whole Blood 152 mg/dL (60-115)
[2022-07-25] MEDS: Insulin Lispro 100 UNIT/ML 3 ML VIAL SUBCUT ×4 (08:04→20:07)
[2022-07-25] MEDS: Metoprolol Tartrate 100 MG TABLET PO ×2 (08:05→20:06)
[2022-07-25] MEDS: Venlafaxine HCl ER 150 MG CAP.ER.24H PO (08:05)
[2022-07-25] MEDS: Atorvastatin Calcium 40 MG TABLET PO (08:05)
[2022-07-25] MEDS: Aspirin Enteric Coated 81 MG TABLET.DR PO (08:05)
[2022-07-25] MEDS: 0.9 % Sodium Chloride Flush 3 ML SYRINGE IVFLUSH ×2 (08:05→16:16)
[2022-07-25] MEDS: guaiFENesin LA 600 MG TAB.ER.12H PO ×2 (08:05→20:06)
[2022-07-25] MEDS: Venlafaxine HCl ER 37.5 MG CAP.ER.24H PO (08:05)
[2022-07-25] MEDS: Fluticasone Propionate Nasal 16 GM SPRAY 1 SPRAY NOSTRIL-B (09:38)
--- NOTE | 2022-07-25 09:52 | P.PNIM_ITS ---
Subjective Subjective Date of Service: 07/25/22 Review of Systems Follow up CAP and COPD still with dry cough eating breakfast Physical Exam Vital Signs: Vital Signs: Last Vital Signs Temp 98.1 F 07/25/22 07:41 Pulse 101 H 07/25/22 09:01 Resp 18 07/25/22 09:01 BP 110/58 L 07/25/22 07:41 Pulse Ox 95 07/25/22 07:41 O2 Del Method 07/25/22 07:41 O2 Flow Rate 2 07/25/22 07:41 BMI result Body Mass Index 40.2 Appearing in no acute distress lung sounds rhonchi heart regular rate rhythm, clear S1, S2 positive bowel sounds, abdomen is soft, nontender neuro patient is alert x3, no focal deficits Objective Data Active Medications Acetaminophen (Acetaminophen 325 Mg Tablet) 650 mg PO Q6H PRN PRN Reason: Pain, Mild (Pain Scale 1-3) Last Admin: 07/24/22 12:15 Dose: 650 mg Documented By: ANNETTE Albuterol Sulfate (Albuterol Sulfate 90 Mcg 8 Gm Inhaler) 2 puff INHALE Q4H PRN PRN Reason: Wheezing Aspirin (Aspirin Enteric Coated 81 Mg Tablet.) 81 mg PO DAILY [facility] Last Admin: 07/25/22 08:05 Dose: 81 mg Documented By: CONSTANTIN Atorvastatin Calcium (Atorvastatin Calcium 40 Mg Tablet) 40 mg PO DAILY [facility] Last Admin: 07/25/22 08:05 Dose: 40 mg Documented By: CONSTANTIN Benzonatate (Benzonatate 100 Mg Capsule) 200 mg PO TID PRN PRN Reason: cough Last Admin: 07/24/22 12:15 Dose: 200 mg Documented By: ANNETTE Albuterol Sulfate 2.5 mg/ (Ipratropium [place] 0.5 mg) 0 mg INHALE RQ4H WHILE AWAKE [facility] Last Admin: 07/25/22 09:00 Dose: 1 each Documented By: OUSMANE Albuterol Sulfate 2.5 mg/ (Ipratropium [place] 0.5 mg) 0 mg INHALE RQ6H WHILE AWAKE PRN PRN Reason: Wheezing Dextrose (Dextrose 50 % 25 Gm/50 Ml Syringe) 25 gm IVPUSH Q15M PRN; Protocol PRN Reason: per Hypoglycemia Standing Ord. Enoxaparin Sodium (Enoxaparin Sodium 40 Mg/0.4 Ml Syringe) 40 mg SUBCUT Q24H [facility] Last Admin: 07/25/22 00:46 Dose: 40 mg Documented By: NINA Fluticasone Propionate (Fluticasone Propionate Nasal 16 Gm [place]) 1 spray NOS TRIL-B DAILY [facility] Last Admin: 07/25/22 09:38 Dose: 1 spray Documented By: CONSTANTIN Glucose (Glucose Gel 15 Gm Gel..Gram.) 15 gm PO Q15M PRN; Protocol PRN Reason: per Hypoglycemia Standing Ord. Guaifenesin (Guaifenesin [place] 600 Mg Tab.Er.12h) 600 mg PO BID [facility] Last Admin: 07/25/22 08:05 Dose: 600 mg Documented By: CONSTANTIN Azithromycin 500 mg/ Sodium (Chloride) 250 mls @ 125 mls/hr IV Q24H [facility] Last Infusion: 07/25/22 02:50 Dose: 0 mls/hr Documented By: NINA Ceftriaxone Sodium 1 gm/ (Sodium Chloride) 50 mls @ 100 mls/hr IV Q24H [facility] Last Infusion: 07/24/22 22:15 Dose: 0 mls/hr Documented By: NINA Insulin Human Lispro (Insulin Lispro 100 Unit/Ml 3 Ml Vial) 0.1 - 10 unit SUBCUT QIDACHS [facility]; Protocol Last Admin: 07/25/22 08:04 Dose: 2 unit Documented By: CONSTANTIN Melatonin (Melatonin 3 Mg Tablet) 6 mg PO BEDTIME PRN PRN Reason: Insomnia Methylprednisolone Sodium Succinate (Methylprednisolone Sod Succ 40 Mg/Ml Vial) 40 mg IVPUSH Q12H [facility] Last Admin: 07/25/22 00:46 Dose: 40 mg Documented By: NINA Metoprolol Tartrate (Metoprolol Tartrate 100 Mg Tablet) 100 mg PO BID [facility]; Protocol Last Admin: 07/25/22 08:05 Dose: 100 mg Documented By: CONSTANTIN Ondansetron HCl (Ondansetron Hcl 4 Mg/2 Ml Vial) 4 mg IVPUSH Q8H PRN PRN Reason: Nausea and Vomiting Pharmacy Consult (Consult Rx Perform Med Rec) 1 each MISCELLANE ONCE PRN PRN Reason: Consult order Sodium Chloride (0.9 % Sodium Chloride Flush 3 Ml Syringe) 3 ml IVFLUSH QSHIFT [facility] Last Admin: 07/25/22 08:05 Dose: 3 ml Documented By: CONSTANTIN Trazodone HCl (Trazodone Hcl 50 Mg Tablet) 50 mg PO BEDTIME [facility] Last Admin: 07/24/22 21:05 Dose: 50 mg Documented By: NINA Venlafaxine HCl (Venlafaxine Hcl Er 37.5 Mg Cap.Er.24h) 37.5 mg PO DAILY [facility] Last Admin: 07/25/22 08:05 Dose: 37.5 mg Documented By: CONSTANTIN Venlafaxine HCl (Venlafaxine Hcl Er 150 Mg Cap.Er.24h) 150 mg PO DAILY [facility] Last Admin: 07/25/22 08:05 Dose: 150 mg Documented By: CONSTANTIN Labs 07/24/22 05:31 07/24/22 05:31 Labs: Laboratory Results - last 24 hr 07/24/22 07/24/22 07/24/22 11:46 16:29 19:35 POC Glucose 159 H 176 H 266 H 07/25/22 07:40 POC Glucose 152 H Microbiology Microbiology Results: Microbiology 07/23/22 15:19 Blood Culture - Preliminary Blood - Venous No growth after 24 hours. 07/23/22 15:19 Blood Culture - Preliminary Blood - Venous No growth after 24 hours. 07/23/22 16:59 Urine Culture - Final Urine clean catch - Clean Catch Midstream Assessment and Plan (1) Hypoxia: Status: Acute Plan 57-year-old female with pertinent history of COPD not on home oxygen, mood disorder, essential hypertension who presents to the emergency department for evaluation of dyspnea. Thrombocytopenia no hx heme consult follow CBC Acute hypoxemic respiratory failure secondary to COPD exacerbation + CAP, Had flu 07/18/22? Monitor oxygen saturation and maintain greater than 88% continue Rocephin and azithromycin mucinex for dry cough supplemental oxygen solumedrol, scheduled duonebs ? Essential hypertension Continue p.o. home antihypertensives Mood disorder Continue home medications Hyperglycemia A1C 6.6, prediabetes ss, ada diet while inpatient DVT prophylaxis: Lovenox 40 mg daily Full Code Attending Dr. Mccormack ?continued hospital stay for?IV antibiotics Time Spent With Patient Time: Total time managing care of this patient today ____ minutes. Quality Stroke Does the patient have a stroke diagnosis?: No VTE Prior VTE?: No VTE Risk Level:: Medical - moderate - high VTE Device Contraindication: Treatment Not Indicated VTE Drug Contraindication: N/A - Med Ordered
[2022-07-25 10:40] LABS: Hematocrit 32.3 % (37.0-47.0); Hemoglobin 10.5 g/dl (12.0-16.0); Mean Corpuscular HGB Conc 32.5 g/dl (31.0-35.0); Mean Corpuscular Hemoglobin 32.5 pg (27.0-33.0); Mean Platelet Volume 11.6 fL (9.4-12.3); Red Blood Count 3.23 X10*6/uL (4.20-5.50); Red Cell Distribution Width 16.4 % (11.0-16.0); White Blood Count 7.6 X10*3/uL (4.8-10.8)
[2022-07-25 10:55] LABS: Platelet Count 83 X10*3/uL (160-400)
[2022-07-25 11:28] LABS: Glucose, Whole Blood 188 mg/dL (60-115)
[2022-07-25 11:44] LABS: Iron 124 mcg/dL (30-160); Percent Iron Saturation 57 % (15-50); Total Iron Binding Capacity 218 mcg/dL (228-428); Unsaturated Iron Binding 94 ug/dL
[2022-07-25 12:29] LABS: Folate 13.7 ng/mL (> or = 4.0); Vitamin B12 850 pg/mL (200-900)
--- NOTE | 2022-07-25 12:34 | PM.HEMONCCN ---
Subjective - Subjective Chief complaint: Shortness of breath Patient: new to practice Consult date: 07/25/22 Primary Care Provider: Nonstaff Physician HPI - Consult Narrative Reason for consult: Thrombocytopenia Narrative: Miladys Bales is a 57 year old female admitted for pneumonia and COPD exacerbation was found to have thrombocytopenia. She initially presented to the emergency department on July 18 with flu like symptoms, she was diagnosed with influenza, at that time her platelets were 59,000. She had mild pancytopenia as well with WBC count of 4.4 and hemoglobin of 11.2 gram/dL. She says that she saw her PCP in [place] within the last 3 months and had blood work which was reportedly normal. She was never told of thrombocytopenia in the past. She denies any history of liver disease or alcoholism. She is a chronic smoker. She denies being started on any new medications as outpatient. She is up-to-date with screening mammogram and colonoscopy. She has no risk factors for HIV or hepatitis. She says she was vaccinated for hepatitis-B. She denies any constitutional symptoms such as fever, chills, night sweats or unexplained weight loss. She is on baby aspirin and does report easy skin bruising. Review of Systems - Constitutional Reports as per HPI, Reports fatigue, Reports lack of energy, Reports malaise, Denies night sweats, Denies weight loss - Cardiovascular Reports no additional cardiovascular complaints - Respiratory Denies chest congestion, Reports dyspnea PMFSH Medical History: Medical History (Last Updated 07/24/22 @ 00:28 by Kamilla Gregory MD) COPD (chronic obstructive pulmonary disease) Hypertension Mood disorder Functional capacity: independent ambulation Social History: Social History (Last Reviewed 07/23/22 @ 16:54 by Anna Danielson NP) Living Situation History: Household Members: None Housing: Apartment Do you presently have visiting nurse or other home services: No Tobacco History: Patient Tobacco Use Status: Former Tobacco user Occupation Assessmet: service: No Current occupational status: unemployed Home Medications and Allergies Current Medications: Current Medications Acetaminophen (Acetaminophen 325 Mg Tablet) 650 mg PO Q6H PRN PRN Reason: Pain, Mild (Pain Scale 1-3) Last Admin: 07/24/22 12:15 Dose: 650 mg Albuterol Sulfate (Albuterol Sulfate 90 Mcg 8 Gm Inhaler) 2 puff INHALE Q4H PRN PRN Reason: Wheezing Aspirin (Aspirin Enteric Coated 81 Mg Tablet.Dr) 81 mg PO DAILY [facility] Last Admin: 07/25/22 08:05 Dose: 81 mg Atorvastatin Calcium (Atorvastatin Calcium 40 Mg Tablet) 40 mg PO DAILY [facility] Last Admin: 07/25/22 08:05 Dose: 40 mg Benzonatate (Benzonatate 100 Mg Capsule) 200 mg PO TID PRN PRN Reason: cough Last Admin: 07/24/22 12:15 Dose: 200 mg Albuterol Sulfate 2.5 mg/ (Ipratropium [place] 0.5 mg) 0 mg INHALE RQ4H WHILE AWAKE [facility] Last Admin: 07/25/22 11:47 Dose: 1 each Albuterol Sulfate 2.5 mg/ (Ipratropium [place] 0.5 mg) 0 mg INHALE RQ6H WHILE AWAKE PRN PRN Reason: Wheezing Dextrose (Dextrose 50 % 25 Gm/50 Ml Syringe) 25 gm IVPUSH Q15M PRN; Protocol PRN Reason: per Hypoglycemia Standing Ord. Enoxaparin Sodium (Enoxaparin Sodium 40 Mg/0.4 Ml Syringe) 40 mg SUBCUT Q24H [facility] Last Admin: 07/25/22 00:46 Dose: 40 mg Fluticasone Propionate (Fluticasone Propionate Nasal 16 Gm [place]) 1 spray NOSTRIL-B DAILY [facility] Last Admin: 07/25/22 09:38 Dose: 1 spray Glucose (Glucose Gel 15 Gm Gel..Gram.) 15 gm PO Q15M PRN; Protocol PRN Reason: per Hypoglycemia Standing Ord. Guaifenesin (Guaifenesin La 600 Mg Tab.Er.12h) 600 mg PO BID [facility] Last Admin: 07/25/22 08:05 Dose: 600 mg Azithromycin 500 mg/ Sodium (Chloride) 250 mls @ 125 mls/hr IV Q24H [facility] Last Infusion: 07/25/22 02:50 Dose: Infused Ceftriaxone Sodium 1 gm/ (Sodium Chloride) 50 mls @ 100 mls/hr IV Q24H [facility] Last Infusion: 07/24/22 22:15 Dose: Infused Insulin Human Lispro (Insulin Lispro 100 Unit/Ml 3 Ml Vial) 0.1 - 10 unit SUBCUT QIDACHS [facility]; Protocol Last Admin: 07/25/22 11:54 Dose: 2 unit Melatonin (Melatonin 3 Mg Tablet) 6 mg PO BEDTIME PRN PRN Reason: Insomnia Methylprednisolone Sodium Succinate (Methylprednisolone Sod Succ 40 Mg/Ml Vial) 40 mg IVPUSH Q12H [facility] Last Admin: 07/25/22 11:54 Dose: 40 mg Metoprolol Tartrate (Metoprolol Tartrate 100 Mg Tablet) 100 mg PO BID [facility]; Protocol Last Admin: 07/25/22 08:05 Dose: 100 mg Ondansetron HCl (Ondansetron Hcl 4 Mg/2 Ml Vial) 4 mg IVPUSH Q8H PRN PRN Reason: Nausea and Vomiting Pharmacy Consult (Consult Rx Perform Med Rec) 1 each MISCELLANE ONCE PRN PRN Reason: Consult order Sodium Chloride (0.9 % Sodium Chloride Flush 3 Ml Syringe) 3 ml IVFLUSH QSHIFT [facility] Last Admin: 07/25/22 08:05 Dose: 3 ml Trazodone HCl (Trazodone Hcl 50 Mg Tablet) 50 mg PO BEDTIME [facility] Last Admin: 07/24/22 21:05 Dose: 50 mg Venlafaxine HCl (Venlafaxine Hcl Er 37.5 Mg Cap.Er.24h) 37.5 mg PO DAILY [facility] Last Admin: 07/25/22 08:05 Dose: 37.5 mg Venlafaxine HCl (Venlafaxine Hcl Er 150 Mg Cap.Er.24h) 150 mg PO DAILY [facility] Last Admin: 07/25/22 08:05 Dose: 150 mg Home Medications Medication Instructions Recorded Confirmed Type albuterol sulfate 90 mcg/actuation 2 puff inhalation Q4H PRN Wheezing 07/23/22 07/24/22 History aerosol inhaler aspirin 81 mg tablet,delayed 1 tab PO DAILY 07/23/22 07/23/22 History release (Adult Aspirin Regimen) atorvastatin 40 mg tablet 1 tab PO DAILY 07/23/22 07/23/22 History [id number]-[id number] 1 - 2 tab PO Q4H PRN Headache 07/23/22 07/24/22 History 50 mg-325 mg-40 mg tablet fluticasone propionate 50 1 spray intranasal DAILY 07/23/22 07/24/22 History mcg/actuation nasal spray,suspension hydrochlorothiazide 25 mg tablet 1 tab PO DAILY 07/23/22 07/23/22 History ipratropium 0.5 mg-albuterol 3 mg 3 ml inhalation Q6H 07/23/22 07/24/22 History (2.5 mg base)/3 mL nebulization soln lisinopril 5 mg tablet 1 tab PO DAILY 07/23/22 07/23/22 History metoprolol tartrate 100 mg tablet 1 tab PO BID 07/23/22 07/23/22 History tiotropium bromide 1.25 2 puff inhalation DAILY 07/23/22 07/23/22 History mcg/actuation mist for inhalation (Spiriva Respimat) trazodone 50 mg tablet 1 tab PO BEDTIME 07/23/22 07/23/22 History venlafaxine 150 mg 1 cap PO DAILY 07/23/22 07/23/22 History capsule,extended release 24 hr venlafaxine 37.5 mg 1 cap PO DAILY 07/23/22 07/23/22 History capsule,extended release 24 hr Allergies Allergy/AdvReac Type Severity Reaction Status Date / Time No Known Allergies Allergy Verified 07/18/22 03:54 Physical Exam Vital signs: Vital Signs Temp 98.1 F 07/25/22 07:41 Pulse 101 H 07/25/22 11:48 Resp 18 07/25/22 11:48 BP 110/58 L 07/25/22 07:41 Pulse Ox 95 07/25/22 07:41 O2 Del Method 07/25/22 07:41 O2 Flow Rate 2 07/25/22 07:41 Intake & Output 07/24/22 07/25/22 07/25/22 18:59 06:59 18:59 Intake Total 720 / 1260 540 / 1260 Balance 720 / 1260 540 / 1260 Intake: Intake, Oral Amount 720 / 960 240 / 960 Intake, IV Amount 300 / 300 Azithromycin 500 mg In 0.9 % 250 / 250 Sodium Chloride 250 ml @ 125 mls/hr IV Q24H [facility] Rx#: [id number] cefTRIAXone sodium 1 gm In 0.9 50 / 50 % Sodium Chloride 50 ml @ 100 mls/hr IV Q24H [facility] Rx#: [id number] Other: Meal Refused No No NPO No No Breakfast % Eaten 100% Lunch % Eaten 100% Dinner % Eaten 100% Number of Unmeasured Voids 2 4 Urine Bathroom Weight 99.79 kg - Constitutional Present: no acute distress, obese - Routine HEENT Exam Head: Present: normal inspection Eye: Present: EOMI, PERRL - Routine Neck Exam Present: supple. Absent: lymphadenopathy - Routine Respiratory Exam Absent: accessory muscle use - Routine Cardiovascular Exam Cardiovascular: Present: S1, S2 - Routine Abdominal Exam Present: soft - Routine Extremities Exam Absent: calf tenderness - Routine Skin Exam Present: intact - Routine Neurological Exam Present: alert, oriented X3 Hem/Onc Consult Result - Labs CBC & Chem 7: 07/25/22 10:20 07/24/22 05:31 Labs: Short CBC 07/25/22 Range/Units 10:20 WBC 7.6 (4.8-10.8) X10*3/uL Hgb 10.5 L (12.0-16.0) g/dl Hct 32.3 L (37.0-47.0) % Plt Count 83 L (160-400) X10*3/uL Assessment and Plan Patient Active problem list reviewed?: Yes (1) Thrombocytopenia Status: Acute Assessment and plan: 1. This is a 57-year-old woman from [facility] who has been admitted with bilateral pneumonia and COPD exacerbation after recent diagnosis of influenza. She initially presented on 07/18/2022, blood work revealed mild pancytopenia and moderate thrombocytopenia. Her platelet count was 59 K. Repeat labs on 07/23/2022 shows improvement in WBC count as well as platelet count to 76 K. she has never been told of low blood counts in the past. She has no risk factors for hepatitis or HIV. She has not been started on any new medications that can contribute to thrombocytopenia she has stable kidney functions and not significant anemia to suggest myelophthisic process. Her LFTs were also mildly elevated a week ago, it is improving. Possibilities here or thrombocytopenia related to viral infection. She may have underlying liver disease, fatty liver is a possibility. Submit vitamin B12, folic acid levels. Liver ultrasound/abdominal ultrasound to rule out liver disease or hepatosplenomegaly. Since her platelet counts are improving daily, other acute etiologies such as DIC and heparin-induced thrombocytopenia unlikely. I thank you for this consultation. - Time Spent With Patient Time Spent with Patient (in minutes): 15
[2022-07-25 16:10] LABS: Glucose, Whole Blood 185 mg/dL (60-115)
[2022-07-25] MEDS: traZODone HCL 50 MG TABLET PO (20:06)
[2022-07-25 20:07] LABS: Glucose, Whole Blood 184 mg/dL (60-115)
[2022-07-25] MEDS: cefTRIAXone sodium 1 GM in 0.9 % Sodium Chloride 50 ML IV (20:07)
[2022-07-26] VITALS (8 sets, daily range): BP systolic 128–135; BP diastolic 60–63; PULSE 70–88; RESP 15–20; TEMP 36–36.5; O2SAT 89–95
[2022-07-26] MEDS: methylPREDNISolone Sod Succ 40 MG/ML VIAL IVPUSH ×3 (01:37→16:26)
[2022-07-26] MEDS: Azithromycin 500 MG in 0.9 % Sodium Chloride 250 ML 125 MG IV (01:38)
[2022-07-26] MEDS: Enoxaparin Sodium 40 MG/0.4 ML SYRINGE SUBCUT (01:40)
[2022-07-26] MEDS: Benzonatate 100 MG CAPSULE 200 MG PO (03:18)
[2022-07-26 07:58] LABS: Glucose, Whole Blood 160 mg/dL (60-115)
[2022-07-26] MEDS: Venlafaxine HCl ER 150 MG CAP.ER.24H PO (09:03)
[2022-07-26] MEDS: guaiFENesin LA 600 MG TAB.ER.12H PO ×2 (09:04→22:37)
[2022-07-26] MEDS: Venlafaxine HCl ER 37.5 MG CAP.ER.24H PO (09:04)
[2022-07-26] MEDS: Atorvastatin Calcium 40 MG TABLET PO (09:04)
[2022-07-26] MEDS: Aspirin Enteric Coated 81 MG TABLET.DR PO (09:04)
[2022-07-26] MEDS: Metoprolol Tartrate 100 MG TABLET PO ×2 (09:04→22:37)
[2022-07-26] MEDS: 0.9 % Sodium Chloride Flush 3 ML SYRINGE IVFLUSH ×3 (09:05→23:52)
[2022-07-26] MEDS: Insulin Lispro 100 UNIT/ML 3 ML VIAL SUBCUT ×3 (09:05→22:37)
[2022-07-26] MEDS: Acetaminophen 325 MG TABLET 650 MG PO (09:08)
[2022-07-26] MEDS: Fluticasone Propionate Nasal 16 GM SPRAY 1 SPRAY NOSTRIL-B (09:08)
--- NOTE | 2022-07-26 09:17 | P.PNIM_ITS ---
Subjective Subjective Date of Service: 07/26/22 Review of Systems Follow up CAP and COPD still with dry cough eating breakfast Physical Exam Vital Signs: Vital Signs: Last Vital Signs Temp 97.3 F 07/26/22 07:36 Pulse 87 07/26/22 07:58 Resp 18 07/26/22 07:58 BP 128/60 07/26/22 07:36 Pulse Ox 91 L 07/26/22 07:36 O2 Del Method 07/26/22 07:36 O2 Flow Rate 2 07/25/22 16:00 BMI result Body Mass Index 40.2 Appearing in no acute distress lung sounds are clear to auscultation heart regular rate rhythm, clear S1, S2 positive bowel sounds, abdomen is soft, nontender neuro patient is alert x3, no focal deficits Objective Data Active Medications Acetaminophen (Acetaminophen 325 Mg Tablet) 650 mg PO Q6H PRN PRN Reason: Pain, Mild (Pain Scale 1-3) Last Admin: 07/26/22 09:08 Dose: 650 mg Documented By: SOHAIL Albuterol Sulfate (Albuterol Sulfate 90 Mcg 8 Gm Inhaler) 2 puff INHALE Q4H PRN PRN Reason: Wheezing Aspirin (Aspirin Enteric Coated 81 Mg Tablet.) 81 mg PO DAILY REPLACED BY [facility] Last Admin: 07/26/22 09:04 Dose: 81 mg Documented By: SOHAIL Atorvastatin Calcium (Atorvastatin Calcium 40 Mg Tablet) 40 mg PO DAILY [facility]PLACED BY [facility] Last Admin: 07/26/22 09:04 Dose: 40 mg Documented By: SOHAIL Benzonatate (Benzonatate 100 Mg Capsule) 200 mg PO TID PRN PRN Reason: cough Last Admin: 07/26/22 03:18 Dose: 200 mg Documented By: NINA Albuterol Sulfate 2.5 mg/ (Ipratropium [place] 0.5 mg) 0 mg INHALE RQ4H WHILE AWAKE REPLACED BY [facility] Last Admin: 07/26/22 07:56 Dose: 2.5 each Documented By: KORIN Albuterol Sulfate 2.5 mg/ (Ipratropium [place] 0.5 mg) 0 mg INHALE RQ6H WHILE AWAKE PRN PRN Reason: Wheezing Dextrose (Dextrose 50 % 25 Gm/50 Ml Syringe) 25 gm IVPUSH Q15M PRN; Protocol PRN Reason: per Hypoglycemia Standing Ord. Enoxaparin Sodium (Enoxaparin Sodium 40 Mg/0.4 Ml Syringe) 40 mg SUBCUT Q24H [facility]PLACED BY [facility] Last Admin: 07/26/22 01:40 Dose: 40 mg Documented By: NINA Fluticasone Propionate (Fluticasone Propionate Nasal 16 Gm [place]) 1 spray NOSTRIL-B DAILY [facility]PLACED BY [facility] Last Admin: 07/26/22 09:08 Dose: 1 spray Documented By: SOHAIL Glucose (Glucose Gel 15 Gm Gel..Gram.) 15 gm PO Q15M PRN; Protocol PRN Reason: per Hypoglycemia Standing Ord. Guaifenesin (Guaifenesin [place] 600 Mg Tab.Er.12h) 600 mg PO BID [facility]PLACED BY [facility] Last Admin: 07/26/22 09:04 Dose: 600 mg Documented By: SOHAIL Azithromycin 500 mg/ Sodium (Chloride) 250 mls @ 125 mls/hr IV Q24H REPLACED BY [facility] Last Infusion: 07/26/22 03:33 Dose: 0 mls/hr Documented By: NINA Ceftriaxone Sodium 1 gm/ (Sodium Chloride) 50 mls @ 100 mls/hr IV Q24H REPLACED BY [facility] Last Infusion: 07/25/22 20:50 Dose: 0 mls/hr Documented By: NINA Insulin Human Lispro (Insulin Lispro 100 Unit/Ml 3 Ml Vial) 0.1 - 10 unit SUBCUT QIDACHS REPLACED BY [facility]; Protocol Last Admin: 07/26/22 09:05 Dose: 2 unit Documented By: SOHAIL Melatonin (Melatonin 3 Mg Tablet) 6 mg PO BEDTIME PRN PRN Reason: Insomnia Methylprednisolone Sodium Succinate (Methylprednisolone Sod Succ 40 Mg/Ml Vial) 40 mg IVPUSH Q8H REPLACED BY [facility] Metoprolol Tartrate (Metoprolol Tartrate 100 Mg Tablet) 100 mg PO BID REPLACED BY [facility]; Protocol Last Admin: 07/26/22 09:04 Dose: 100 mg Documented By: SOHAIL Ondansetron HCl (Ondansetron Hcl 4 Mg/2 Ml Vial) 4 mg IVPUSH Q8H PRN PRN Reason: Nausea and Vomiting Pharmacy Consult (Consult Rx Perform Med Rec) 1 each MISCELLANE ONCE PRN PRN Reason: Consult order Sodium Chloride (0.9 % Sodium Chloride Flush 3 Ml Syringe) 3 ml IVFLUSH QSHIFT REPLACED BY [facility] Last Admin: 07/26/22 09:05 Dose: 3 ml Documented By: SOHAIL Trazodone HCl (Trazodone Hcl 50 Mg Tablet) 50 mg PO BEDTIME REPLACED BY [facility] Last Admin: 07/25/22 20:06 Dose: 50 mg Documented By: NINA Venlafaxine HCl (Venlafaxine Hcl Er 37.5 Mg Cap.Er.24h) 37.5 mg PO DAILY REPLACED BY [facility] Last Admin: 07/26/22 09:04 Dose: 37.5 mg Documented By: SOHAIL Venlafaxine HCl (Venlafaxine Hcl Er 150 Mg Cap.Er.24h) 150 mg PO DAILY [facility]PLACED BY [facility] Last Admin: 07/26/22 09:03 Dose: 150 mg Documented By: SOHAIL Labs 07/25/22 10:20 07/24/22 05:31 Labs: Laboratory Results - last 24 hr 07/23/22 07/24/22 07/24/22 15:19 05:31 05:31 MCV MCH MCHC RDW Plt Count MPV Absolute Nucleated RBC Nucleated RBC % (auto) Smear Path Review POC Glucose Iron 124 TIBC 218 L % Saturation 57 H Unsat Iron Binding 94 Vitamin B12 850 Folate 13.7 07/25/22 07/25/22 07/25/22 10:20 11:24 15:42 MCV 100.0 H MCH 32.5 MCHC 32.5 RDW 16.4 H Plt Count 83 L MPV 11.6 Absolute Nucleated RBC 0.000 Nucleated RBC % (auto) 0.0 Smear Path Review POC Glucose 188 H 185 H Iron TIBC % Saturation Unsat Iron Binding Vitamin B12 Folate 07/25/22 07/26/22 19:48 07:39 MCV MCH MCHC RDW Plt Count MPV Absolute Nucleated RBC Nucleated RBC % (auto) Smear Path Review POC Glucose 184 H 160 H Iron TIBC % Saturation Unsat Iron Binding Vitamin B12 Folate Microbiology Microbiology Results: Microbiology 07/23/22 15:19 Blood Culture - Preliminary Blood - Venous No growth after 48 hours. 07/23/22 15:19 Blood Culture - Preliminary Blood - Venous No growth after 48 hours. Assessment and Plan (1) Hypoxia: Status: Acute Plan 57-year-old female with pertinent history of COPD not on home oxygen, mood disorder, essential hypertension who presents to the emergency department for evaluation of dyspnea. Thrombocytopenia improving daily no significant anemia no hx, maybe viral related with recent flu abd us to assess for liver disease/fatty liver heme input appreciated follow CBC Acute hypoxemic respiratory failure secondary to COPD exacerbation + CAP, Had flu 07/18/22? Monitor oxygen saturation and maintain greater than 88% continue Rocephin and azithromycin mucinex for dry cough supplemental oxygen solumedrol, scheduled duonebs Right rib pain pain on palpations seems MSK kpads and tylenol ? Essential hypertension Continue p.o. home antihypertensives Mood disorder Continue home medications Hyperglycemia A1C 6.6, prediabetes ss, ada diet while inpatient DVT prophylaxis: Lovenox 40 mg daily Full Code Attending Dr. Mccormack ?continued hospital stay for?IV antibiotics Time Spent With Patient Time: Total time managing care of this patient today ____ minutes. Quality Stroke Does the patient have a stroke diagnosis?: No VTE Prior VTE?: No VTE Risk Level:: Medical - moderate - high VTE Device Contraindication: Treatment Not Indicated VTE Drug Contraindication: N/A - Med Ordered
--- NOTE | 2022-07-26 11:17 | P.CDIC_ITS ---
CDI Concurrent Query Documentation Clarification: PHYSICIAN'S DOCUMENTATION REQUEST Date of Query: 07/26/22 1117 Patient Name: Miladys Bales Admit Date: 07/24/22 Dear Doctor, A review of the medical record indicates additional documentation may be needed. Please review below and update the documentation accordingly. Clinical Indicators: A diagnosis of pancytopenia was documented on 07/25/22 in the provider consult note but lacks subsequent documentation. Please confirm or rule out this diagnosis as it correlates with the findings below: Risk Factors/Clinical Indicators/Treatments POA/TREAT/RESOLVED/RULE OUT Per hematology oncology consult on 07/25/22 blood work revealed mild pancytopenia and moderate thrombocytopenia Labs: WBCs on 07/18: 4.4 RBCs on 07/18: 3.43 Platelets on 07/18: 59 Based on the above, could you clarify in the Progress Notes the appropriate diagnosis, if significant, that supports the above abnormalities and additional evaluation, monitoring, and/or treatment rendered: * Pancytopenia is/was present * Pancytopenia has been ruled out * Other (please specify) * Unable to determine Use of terms such as suspected, likely, concern for, or probable (associated with a specific diagnosis that is being evaluated, monitored, or treated as if it exists) are acceptable and can be coded in the inpatient setting, when documented at the time of discharge. Thank you, Yvette Gooden MS, RN, CCRN Extension: [phone] Please use your independent medical judgment in providing your response. THIS QUERY IS PART OF THE PERMANENT MEDICAL RECORD Other Diagnosis: See note
--- NOTE | 2022-07-26 11:36 | P.CDIC_ITS ---
CDI Concurrent Query Documentation Clarification: PHYSICIAN'S DOCUMENTATION REQUEST Date of Query: 07/26/22 1136 Patient Name: Miladys Bales Admit Date: 07/24/22 Dear Doctor, A review of the medical record indicates additional documentation may be needed. Please review below and update the documentation accordingly. Clinical Indicators: Is there a diagnosis that correlates with the findings below: Risk Factors/Clinical Indicators/Treatments BMI: 40.2 Height: 5ft 2in Weight: 99.79kg Per RN shift assessments: abdomen obese Patient with uncontrolled diabetes If possible, please provide an associated diagnosis related to the abnormal BMI, such as: For a BMI >= 40: * Severe or Morbid Obesity * Obesity * Due to excess calories * Drug induced * Due to other cause * With alveolar hypoventilation * Without alveolar hypoventilation Or: * BMI is not significant * Other (please specify) * Unable to determine Use of terms such as suspected, likely, concern for, or probable (associated with a specific diagnosis that is being evaluated, monitored, or treated as if it exists) are acceptable and can be coded in the inpatient setting, when documented at the time of discharge. Thank you, Yvette Gooden MS, RN, CCRN Extension: [phone] Please use your independent medical judgment in providing your response. THIS QUERY IS PART OF THE PERMANENT MEDICAL RECORD Other Diagnosis: See note
[2022-07-26 11:44] LABS: Glucose, Whole Blood 168 mg/dL (60-115)
[2022-07-26 16:01] LABS: Glucose, Whole Blood 117 mg/dL (60-115)
[2022-07-26 20:29] LABS: Glucose, Whole Blood 212 mg/dL (60-115)
[2022-07-26] MEDS: traZODone HCL 50 MG TABLET PO (22:37)
[2022-07-26] MEDS: cefTRIAXone sodium 1 GM in 0.9 % Sodium Chloride 50 ML IV (22:37)
[2022-07-27] VITALS (7 sets, daily range): BP systolic 117–130; BP diastolic 59–67; PULSE 62–85; RESP 16–20; TEMP 36–37; O2SAT 93–97
[2022-07-27] MEDS: methylPREDNISolone Sod Succ 40 MG/ML VIAL IVPUSH ×3 (00:47→16:51)
[2022-07-27] MEDS: Azithromycin 500 MG in 0.9 % Sodium Chloride 250 ML 125 MG IV (00:47)
[2022-07-27] MEDS: Enoxaparin Sodium 40 MG/0.4 ML SYRINGE SUBCUT (00:48)
[2022-07-27 07:11] LABS: Hematocrit 31.4 % (37.0-47.0); Hemoglobin 10.3 g/dl (12.0-16.0); Mean Corpuscular HGB Conc 32.8 g/dl (31.0-35.0); Mean Corpuscular Hemoglobin 32.4 pg (27.0-33.0); Mean Corpuscular Volume 98.7 fL (80.0-98.0); Mean Platelet Volume 12.1 fL (9.4-12.3); PLT CLUMP 1; Red Blood Count 3.18 X10*6/uL (4.20-5.50)
[2022-07-27 07:18] LABS: Platelet Count 69 X10*3/uL (160-400); White Blood Count 9.3 X10*3/uL (4.8-10.8)
[2022-07-27 07:27] LABS: Glucose, Whole Blood 139 mg/dL (60-115)
[2022-07-27 07:50] LABS: Anion Gap 12 (12-20); Blood Urea Nitrogen 18 mg/dL (9-16); Calcium 8.7 mg/dL (8.4-10.2); Carbon Dioxide 23 mmol/L (22-29); Chloride 106 mmol/L (96-108); Creatinine Clr Calc Pharmacy 100.8; Estimated Glomerular Filt Rate > 60; Glucose Random 170 mg/dL (60-115); Potassium 4.8 mmol/L (3.3-5.1); Sodium 136 mmol/L (135-145)
[2022-07-27] MEDS: Metoprolol Tartrate 100 MG TABLET PO ×2 (08:43→22:02)
[2022-07-27] MEDS: Venlafaxine HCl ER 37.5 MG CAP.ER.24H PO (08:43)
[2022-07-27] MEDS: guaiFENesin LA 600 MG TAB.ER.12H PO ×2 (08:43→22:02)
[2022-07-27] MEDS: Atorvastatin Calcium 40 MG TABLET PO (08:43)
[2022-07-27] MEDS: 0.9 % Sodium Chloride Flush 3 ML SYRINGE IVFLUSH ×3 (08:43→22:03)
[2022-07-27] MEDS: Aspirin Enteric Coated 81 MG TABLET.DR PO (08:43)
[2022-07-27] MEDS: Venlafaxine HCl ER 150 MG CAP.ER.24H PO (08:43)
[2022-07-27] MEDS: Fluticasone Propionate Nasal 16 GM SPRAY 1 SPRAY NOSTRIL-B (10:40)
--- NOTE | 2022-07-27 11:19 | P.PNIM_ITS ---
Subjective Subjective Date of Service: 07/27/22 Review of Systems Follow up CAP and COPD still with dry cough eating breakfast Physical Exam Vital Signs: Vital Signs: Last Vital Signs Temp 98.6 F 07/27/22 07:55 Pulse 69 07/27/22 08:53 Resp 20 07/27/22 08:53 BP 121/60 07/27/22 07:55 Pulse Ox 93 07/27/22 07:55 O2 Del Method 07/27/22 07:55 O2 Flow Rate 2 07/25/22 16:00 BMI result Body Mass Index 40.2 Appearing in no acute distress lung sounds are clear to auscultation heart regular rate rhythm, clear S1, S2 positive bowel sounds, abdomen is soft, nontender neuro patient is alert x3, no focal deficits Objective Data Active Medications Acetaminophen (Acetaminophen 325 Mg Tablet) 650 mg PO Q6H PRN PRN Reason: Pain, Mild (Pain Scale 1-3) Last Admin: 07/26/22 09:08 Dose: 650 mg Documented By: SOHAIL Albuterol Sulfate (Albuterol Sulfate 90 Mcg 8 Gm Inhaler) 2 puff INHALE Q4H PRN PRN Reason: Wheezing Aspirin (Aspirin Enteric Coated 81 Mg Tablet.) 81 mg PO DAILY [facility] Last Admin: 07/27/22 08:43 Dose: 81 mg Documented By: SANTIAGO Atorvastatin Calcium (Atorvastatin Calcium 40 Mg Tablet) 40 mg PO DAILY [facility] Last Admin: 07/27/22 08:43 Dose: 40 mg Documented By: SANTIAGO Benzonatate (Benzonatate 100 Mg Capsule) 200 mg PO TID PRN PRN Reason: cough Last Admin: 07/26/22 03:18 Dose: 200 mg Documented By: NINA Albuterol Sulfate 2.5 mg/ (Ipratropium [place] 0.5 mg) 0 mg INHALE RQ4H WHILE AWAKE [facility] Last Admin: 07/27/22 08:50 Dose: 2.5 each Documented By: RIO Albuterol Sulfate 2.5 mg/ (Ipratropium [place] 0.5 mg) 0 mg INHALE RQ6H WHILE AWAKE PRN PRN Reason: Wheezing Dextrose (Dextrose 50 % 25 Gm/50 Ml Syringe) 25 gm IVPUSH Q15M PRN; Protocol PRN Reason: per Hypoglycemia Standing Ord. Enoxaparin Sodium (Enoxaparin Sodium 40 Mg/0.4 Ml Syringe) 40 mg SUBCUT Q24H [facility] Last Admin: 07/27/22 00:48 Dose: 40 mg Documented By: MAX Fluticasone Propionate (Fluticasone Propionate Nasal 16 Gm Reese) 1 spray NOSTRIL-B DAILY [facility] Last Admin: 07/27/22 10:40 Dose: 1 spray Documented By: SANTIAGO Glucose (Glucose Gel 15 Gm Gel..Gram.) 15 gm PO Q15M PRN; Protocol PRN Reason: per Hypoglycemia Standing Ord. Guaifenesin (Guaifenesin La 600 Mg Tab.Er.12h) 600 mg PO BID [facility] Last Admin: 07/27/22 08:43 Dose: 600 mg Documented By: SANTIAGO Azithromycin 500 mg/ Sodium (Chloride) 250 mls @ 125 mls/hr IV Q24H [facility] Last Infusion: 07/27/22 02:55 Dose: 0 mls/hr Documented By: MAX Ceftriaxone Sodium 1 gm/ (Sodium Chloride) 50 mls @ 100 mls/hr IV Q24H [facility] Last Infusion: 07/26/22 23:53 Dose: 0 mls/hr Documented By: MAX Insulin Human Lispro (Insulin Lispro 100 Unit/Ml 3 Ml Vial) 0.1 - 10 unit SUBCUT QIDACHS [facility]; Protocol Last Admin: 07/27/22 07:30 Dose: Not Given Documented By: SANTIAGO Non-Admin Reason: No Insulin Coverage Melatonin (Melatonin 3 Mg Tablet) 6 mg PO BEDTIME PRN PRN Reason: Insomnia Methylprednisolone Sodium Succinate (Methylprednisolone Sod Succ 40 Mg/Ml Vial) 40 mg IVPUSH Q8H [facility] Last Admin: 07/27/22 08:43 Dose: 40 mg Documented By: SANTIAGO Metoprolol Tartrate (Metoprolol Tartrate 100 Mg Tablet) 100 mg PO BID [facility]; Protocol Last Admin: 07/27/22 08:43 Dose: 100 mg Documented By: SANTIAGO Ondansetron HCl (Ondansetron Hcl 4 Mg/2 Ml Vial) 4 mg IVPUSH Q8H PRN PRN Reason: Nausea and Vomiting Pharmacy Consult (Consult Rx Perform Med Rec) 1 each MISCELLANE ONCE PRN PRN Reason: Consult order Sodium Chloride (0.9 % Sodium Chloride Flush 3 Ml Syringe) 3 ml IVFLUSH QSHIFT [facility] Last Admin: 07/27/22 08:43 Dose: 3 ml Documented By: SANTIAGO Trazodone HCl (Trazodone Hcl 50 Mg Tablet) 50 mg PO BEDTIME [facility] Last Admin: 07/26/22 22:37 Dose: 50 mg Documented By: MAX Venlafaxine HCl (Venlafaxine Hcl Er 37.5 Mg Cap.Er.24h) 37.5 mg PO DAILY [facility] Last Admin: 07/27/22 08:43 Dose: 37.5 mg Documented By: SANTIAGO Venlafaxine HCl (Venlafaxine Hcl Er 150 Mg Cap.Er.24h) 150 mg PO DAILY [facility] Last Admin: 07/27/22 08:43 Dose: 150 mg Documented By: SANTAIGO Labs 07/27/22 05:59 07/27/22 05:59 Labs: Laboratory Results - last 24 hr 07/26/22 07/26/22 07/26/22 11:29 15:47 20:16 MCV MCH MCHC RDW Plt Count MPV Absolute Nucleated RBC Nucleated RBC % (auto) Anion Gap Estim Creat Clear Calc Estimated GFR POC Glucose 168 H 117 H 212 H Random Glucose Calcium 07/27/22 07/27/22 07/27/22 05:59 05:59 07:19 MCV 98.7 H MCH 32.4 MCHC 32.8 RDW 16.0 Plt Count 69 L MPV 12.1 Absolute Nucleated RBC 0.000 Nucleated RBC % (auto) 0.0 Anion Gap 12 Estim Creat Clear Calc 100.8 Estimated GFR > 60 POC Glucose 139 H Random Glucose 170 H Calcium 8.7 D Assessment and Plan (1) Hypoxia: Status: Acute Plan 57-year-old female with pertinent history of COPD not on home oxygen, mood disorder, essential hypertension who presents to the emergency department for evaluation of dyspnea. 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 Monitor oxygen saturation and maintain greater than 88% continue Rocephin and azithromycin mucinex for dry cough supplemental oxygen solumedrol, scheduled duonebs Right rib pain pain on palpations seems MSK kpads and tylenol ? Essential hypertension Continue p.o. home antihypertensives Mood disorder Continue home medications Hyperglycemia A1C 6.6, prediabetes ss, ada diet while inpatient DVT prophylaxis: Lovenox 40 mg daily Full Code Attending Dr. Mccormack continued hospital stay for?IV antibiotics Time Spent With Patient Time: Total time managing care of this patient today ____ minutes. Quality Stroke Does the patient have a stroke diagnosis?: No VTE Prior VTE?: No VTE Risk Level:: Medical - moderate - high VTE Device Contraindication: Treatment Not Indicated VTE Drug Contraindication: N/A - Med Ordered
[2022-07-27 11:36] LABS: Glucose, Whole Blood 156 mg/dL (60-115)
[2022-07-27] MEDS: Insulin Lispro 100 UNIT/ML 3 ML VIAL SUBCUT ×2 (12:00→22:02)
[2022-07-27 16:28] LABS: Glucose, Whole Blood 125 mg/dL (60-115)
[2022-07-27 21:16] LABS: Glucose, Whole Blood 189 mg/dL (60-115)
[2022-07-27] MEDS: traZODone HCL 50 MG TABLET PO (22:02)
[2022-07-27] MEDS: cefTRIAXone sodium 1 GM in 0.9 % Sodium Chloride 50 ML IV (22:09)
[2022-07-28] MEDS: Enoxaparin Sodium 40 MG/0.4 ML SYRINGE SUBCUT (01:06)
[2022-07-28] MEDS: methylPREDNISolone Sod Succ 40 MG/ML VIAL IVPUSH ×2 (01:06→08:13)
[2022-07-28] MEDS: Azithromycin 500 MG in 0.9 % Sodium Chloride 250 ML 125 MG IV (01:07)
[2022-07-28 03:52] VITALS: BP 131/63; PULSE 62; RESP 17; TEMP 36; O2SAT 95
[2022-07-28 05:36] LABS: PLT CLUMP 1; SCAN SMEAR FLAG 1
[2022-07-28 05:38] LABS: Basophils Percent Auto 0.2 % (0-2); Eosinophils Absolute Auto 0.1 X10*3/uL (0.0-0.4); Eosinophils Percent Auto 0.8 % (0-4); Hematocrit 31.7 % (37.0-47.0); Hemoglobin 10.5 g/dl (12.0-16.0); Imm Gran Abs Auto 0.26 X10*3/uL (0.00-0.03); Imm Gran Pct Auto 1.8 % (0.0-0.4); Lymphocytes Absolute Auto 2.7 X10*3/uL (1.2-4.9); MANUAL DIFF FLAG SCAN; Mean Corpuscular HGB Conc 33.1 g/dl (31.0-35.0); Mean Corpuscular Hemoglobin 32.6 pg (27.0-33.0); Mean Corpuscular Volume 98.4 fL (80.0-98.0); Monocytes Absolute Auto 5.4 X10*3/uL (0.1-1.2); Monocytes Percent Auto 37.5 % (2-11); Neutrophils Absolute Auto 5.8 x10*3/uL (2.0-8.3); Neutrophils Percent Auto 40.7 % (45-73); Red Blood Count 3.22 X10*6/uL (4.20-5.50); Red Cell Distribution Width 15.5 % (11.0-16.0)
[2022-07-28 05:40] LABS: Platelet Count 79 X10*3/uL (160-400); White Blood Count 14.3 X10*3/uL (4.8-10.8)
[2022-07-28 05:56] LABS: SLIDE REVIEW VERIFIED
[2022-07-28 07:24] VITALS: BP 104/56; PULSE 71; RESP 19; TEMP 37.1; O2SAT 94
[2022-07-28 07:47] LABS: Glucose, Whole Blood 195 mg/dL (60-115)
[2022-07-28 07:57] VITALS: PULSE 74; RESP 16; O2SAT 95
[2022-07-28] MEDS: 0.9 % Sodium Chloride Flush 3 ML SYRINGE IVFLUSH (08:11)
[2022-07-28] MEDS: Insulin Lispro 100 UNIT/ML 3 ML VIAL SUBCUT ×2 (08:11→11:53)
[2022-07-28] MEDS: Aspirin Enteric Coated 81 MG TABLET.DR PO (08:12)
[2022-07-28] MEDS: Fluticasone Propionate Nasal 16 GM SPRAY 1 SPRAY NOSTRIL-B (08:12)
[2022-07-28] MEDS: Venlafaxine HCl ER 150 MG CAP.ER.24H PO (08:12)
[2022-07-28] MEDS: Venlafaxine HCl ER 37.5 MG CAP.ER.24H PO (08:12)
[2022-07-28] MEDS: Metoprolol Tartrate 100 MG TABLET PO (08:12)
[2022-07-28] MEDS: guaiFENesin LA 600 MG TAB.ER.12H PO (08:12)
[2022-07-28] MEDS: Atorvastatin Calcium 40 MG TABLET PO (08:12)
[2022-07-28 11:22] LABS: Glucose, Whole Blood 151 mg/dL (60-115)
[2022-07-28 11:39] VITALS: PULSE 76; RESP 16; O2SAT 95
--- NOTE | 2022-07-28 12:09 | P.DS_ITS ---
DS: Providers Provider Date of Service: 07/28/22 Date of admission: 07/24/22 00:12 Date of discharge: 07/28/22 Primary care physician: Nonstaff Physician Consults: 07/25/22 08:12 Consult to Hematology / Oncology Routine Consulting Provider: Yvette Oliva Reason for consultation: thrombocytopenia Has provider been notified: No Attending physician on discharge: Lucio Mccormack Discharging clinician: Mary Pozo DS: Diagnosis Discharge Diagnosis (1) Hypoxia: Status: Acute (2) Thrombocytopenia: Status: Acute (3) Acute exacerbation of chronic obstructive airways disease: Status: Acute DS: Summary Hospital Course Hospital Course: From H&P on day of admission ?this is a 57-year-old female with pertinent history of COPD not on home oxygen, mood disorder, essential hypertension who presents to the emergency department for evaluation of dyspnea.? Patient was recently diagnosed with flu on 07/18.? Patient states she has been having worsening dyspnea since then.? It is better at rest and work with ambulation.? Also has been having fevers and chills.? Does endorse associated productive cough.? Patient tried to use her home inhaler without any relief.? Does have wheezing.? Denies chest discomfort, palpitations, abdominal pain, changes in urinary or bowel habits. In the emergency department, patient was noted to be hypoxemic with ambulation Acute hypoxemic respiratory failure secondary to COPD exacerbation + CAP also with recent flu (07/18/22). chest CT showed multifocal ground-glass infiltrates per my early in the upper lobes with some small areas in the right lower lobe. She was treated for pneumonia with IV Rocephin and azithromycin. plan for COPD she was treated with systemic steroids and scheduled breathing treatments. She was able to be weaned off supplemental oxygen. She is able to ambulate without feeling short of breath and her breathing has improved substantially. She is eager to return home. She will be discharged home to complete course of antibiotics as well as steroids. Recommend repeat imaging of the lung in the future to ensure resolution. Thrombocytopenia. platelets were noted to be low. Likely viral due to recent viral illness. Abdominal ultrasound showing hepatic steatosis. Iron studies were within normal limits. No significant anemia. She was seen in consultation by Hematology, likely related to underlying hepatic steatosis versus recent viral illness. Platelets remained stable during hospitalization. No evidence of bleeding. 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 ? Essential hypertension Lisinopril and hydrochlorothiazide were placed on hold during hospitalization. Blood pressure has remained stable. Will discontinue lisinopril and HCTZ until follow-up with PCP. Time Spent with Patient Time attestation: Total time managing care of this patient today ____ minutes. Discharge coordination time: Greater than 30 minutes Quality: Safe Use of Opioids Does Pt have an Active Cancer Diagnosis on the Problem List?: No Quality: Stroke Does the patient have a stroke diagnosis?: No Physical Exam Vital Signs: Vital Signs: Last Vital Signs Temp 98.7 F 07/28/22 07:24 Pulse 76 07/28/22 11:39 Resp 16 07/28/22 11:39 BP 104/56 L 07/28/22 07:24 Pulse Ox 94 07/28/22 07:24 O2 Del Method 07/28/22 07:24 O2 Flow Rate 2 07/25/22 16:00 BMI result Body Mass Index 40.2 Const: General: cooperative, comfortable, alert and awake Nutritional Appearance: overweight Orientation/consciousness: patient oriented x3 Resp: Effort & Inspection: normal respiratory effort and able to speak in complete sentences Cardio: Rate: regular rate Heart sounds: S1 normal heart sound present and S2 normal heart sound present GI: Palpation (GI): Soft to palpation and nontender Neuro: General: patient oriented x3 and CN's II-XI intact bilaterally Extrem: General: Yes no pedal edema DS: Data Data Completed and Pending Labs on day of discharge: Laboratory Results - last 24 hr 07/27/22 07/27/22 07/28/22 15:56 20:44 05:28 WBC 14.3 H RBC 3.22 L Hgb 10.5 L Hct 31.7 L MCV 98.4 H MCH 32.6 MCHC 33.1 RDW 15.5 Plt Count 79 L MPV 12.0 Immature Gran % (Auto) 1.8 H Neut % (Auto) 40.7 L Lymph % (Auto) 19.0 L [place] % (Auto) 37.5 H Eos % (Auto) 0.8 Baso % (Auto) 0.2 Lymph # (Auto) 2.7 [place] # (Auto) 5.4 H Eos # (Auto) 0.1 Baso # (Auto) 0.0 Abs Immat Gran (auto) 0.26 H Absolute Neuts (auto) 5.8 Absolute Nucleated RBC 0.000 Nucleated RBC % (auto) 0.0 Smear Tech's Comments VERIFIED POC Glucose 125 H 189 H 07/28/22 07/28/22 07:31 11:01 WBC RBC Hgb Hct MCV MCH MCHC RDW Plt Count MPV Immature Gran % (Auto) Neut % (Auto) Lymph % (Auto) [place] % (Auto) Eos % (Auto) Baso % (Auto) Lymph # (Auto) [place] # (Auto) Eos # (Auto) Baso # (Auto) Abs Immat Gran (auto) Absolute Neuts (auto) Absolute Nucleated RBC Nucleated RBC % (auto) Smear Tech's Comments POC Glucose 195 H 151 H Preliminary micro results at discharge 07/23/22 15:19 Blood Culture - Preliminary Blood - Venous No growth after 48 hours. 07/23/22 15:19 Blood Culture - Preliminary Blood - Venous No growth after 48 hours. Discharge Plan Discharge Anticipated Discharge Date/Time: 07/28/22 11:59 Patient Disposition: Home, Self-Care Discharge Diagnosis: acute copd exacerbation pneumonia [place] [facility] [place] [facility] [place] [Provider Group] [facility] [place] [facility] [Provider Group] Physician,Shajitatamera [Primary Care Provider] - 1 Week Discharge Medications: New prednisone 20 mg tablet 40 mg PO DAILY 5 Days Qty: 10 0RF azithromycin 250 mg tablet 250 mg PO DAILY 2 Days Qty: 2 0RF cefuroxime axetil 500 mg tablet 500 mg PO BID 2 Days Qty: 4 0RF guaifenesin [Mucinex] 600 mg Tablet Extended Release 12hr 600 mg PO BID PRN (Reason: congestion) Qty: 10 0RF Continued venlafaxine 37.5 mg capsule,extended release 24hr 1 cap PO DAILY trazodone 50 mg tablet 1 tab PO BEDTIME venlafaxine 150 mg capsule,extended release 24hr 1 cap PO DAILY albuterol sulfate 90 mcg/actuation HFA aerosol inhaler 2 puff inhalation Q4H PRN (Reason: Wheezing) atorvastatin 40 mg tablet 1 tab PO DAILY ipratropium-albuterol 0.5 mg-3 mg(2.5 mg base)/3 mL solution for nebulization 3 ml inhalation Q6H metoprolol tartrate 100 mg tablet 1 tab PO BID aspirin [Adult Aspirin Regimen] 81 mg tablet,delayed release (DR/EC) 1 tab PO DAILY aaibpeobly-gxwvizwypcyef-yjmc 50-325-40 mg tablet 1 - 2 tab PO Q4H PRN (Reason: Headache) fluticasone propionate 50 mcg/actuation spray,suspension 1 spray intranasal DAILY Spiriva Respimat 1.25 mcg/actuation mist 2 puff inhalation DAILY Discontinued lisinopril 5 mg tablet 1 tab PO DAILY hydrochlorothiazide 25 mg tablet 1 tab PO DAILY Discharge Orders: Discharge Order (Routine); Ordered 07/28/22 Ordered By: Mary Pozo Activity on Discharge: As tolerated Stand Alone Forms: Patient Portal Discharge page Print Language: Chinese Care Plan Goals: resolution of respiratory symptoms Health Concerns: COPD exacerbation pneumonia low platelet count hepatic steatosis Plan of Treatment: complete course of steroids as prescribed complete course of antibiotics as prescribed call to schedule follow-up appointment with PCP for close monitoring of blood pressure and platelet levels may need 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 Blood pressure has been under control without taking these medications Assessment: See Discharge summary Patient Instructions: How to Use a Metered-Dose Inhaler (ED), COPD (Chronic Obstructive Pulmonary Disease) (ED), How to Use a Nebulizer (ED), How Your Lungs Work (ED)
--- NOTE | 2022-07-28 13:08 | MHC.CM.PN ---
PT TO DC HOME TODAY WITH NO SERVICES PT TO ARRANGE TRANSPORT
== END 2022-07-28 12:39 | disposition home or self-care (01) | DRG 139 ==
LOC: HO.ED 18:49 → HO.EDOVER 07-24 00:19 → HO.S3 07-24 05:40
PROVIDERS: Nurse Practitioner Acute Care; Nurse Practitioner Family; Physician Assistant Medical; Admitting Provider Student in an Organized Health Care Education/Training Program; Emergency Provider Emergency Medicine Emergency Medical Services; Visit Provider Physician Assistant Medical
DX: J18.9 Pneumonia, unspecified organism (principal); J96.01 Acute respiratory failure with hypoxia; D61.818 Other pancytopenia; J44.0 Chronic obstructive pulmonary disease with (acute) lower respiratory infection; J44.1 Chronic obstructive pulmonary disease with (acute) exacerbation; I10 Essential (primary) hypertension; F39 Unspecified mood [affective] disorder; N39.0 Urinary tract infection, site not specified; E11.65 Type 2 diabetes mellitus with hyperglycemia; K76.0 Fatty (change of) liver, not elsewhere classified; R07.81 Pleurodynia; E66.01 Morbid (severe) obesity due to excess calories; Z68.41 Body mass index [BMI] 40.0-44.9, adult; Z20.822 Contact with and (suspected) exposure to COVID-19; Z87.891 Personal history of nicotine dependence; Z79.51 Long term (current) use of inhaled steroids; Z79.82 Long term (current) use of aspirin; Z79.899 Other long term (current) drug therapy
CPT/HCPCS: 0241U; 36415; 71046; 71250; 76700; 80048; 80053; 81001; 82607; 82746; 82803; 82947; 83036; 83540; 83735; 84484; 85007; 85025; 85027; 87040; 87086; 93005; 94640; 99285; J0456; J0696; J1650; J2920; J2930; J3475